=== PATIENT | female | born 1950 | race Caucasian/White ===

== ENCOUNTER → 2016-07-31 | Outpatient (CLI) | payer OTHER ==
[~2016-07-31] MED LIST: ADULT LOW DOSE81 MG PO; ALLOPURINOL 30300 M2 PO; ALPRAZOLAM 0.50.5 M1 PO; AMBIEN 5 MG TABL5 M1 PO; ATORVASTATIN CA40 MG PO; AVANDIA8 MG PO; AZITHROMYCIN 2250 MG PO; B12INJ; BISACODYL SUPP10 MG RECTAL; CAPOTEN PO; CEFDINIR300 MG PO; CITRATE OF MAG296 ML PO; COENZYME Q1060 MG PO; COLACE 100 MG100 MG PO; COLACE100 MG PO; COUMADIN 2 MG TA2 M1 PO; COUMADIN 5 MG TA5 M1; COUMADIN 5 MG TA5 M1 PO; DIGOXIN125 MCG PO; DIGOXIN250 MCG PO; FISH OIL 1,0001 EAC5 PO; FISH OIL 1,2001 EAC4 PO; FLEXERIL PO; GLUCOPHAGE500 MG PO; HUMALOG100 UNIT/2 SQ; HYDROCODON-ACE1 EAC7 PO; IBUPROFEN 600600 M1 PO; IBUPROFEN PO; IMDUR 60 MG TAB60 M1 PO; INDAPAMIDE2.5 MG PO; KEFLEX500 M1 PO; KOMBIGLYZE XR1 EAC1 PO; LANOXIN 0.250.25 M1 PO; LANTUS SC; LANTUSSOLASTAR; LIPITOR 20 MG T20 M1 PO; LIPITOR40 MG PO; LISINOPRIL2.5 MG PO; LISINOPRIL5 MG PO; LOPID600 MG PO; METFORMIN HCL500 MG PO; METHOCARBAMOL500 M1 PO; MILK OF MA2400 MG/10 PO; MULTAQ 400 MG400 MG PO; NAPROSYN500 MG PO; NEURONTIN 300300 M1 PO; NORCO 5-325 TA1 EACH PO; NOVOLIN R100 UNIT/1 SUBQ; NOVOLOG MI100 UNIT/2; NOVOLOG MI100 UNIT/2 SUBQ; NOVOLOG MI100 UNIT/M SUBQ; NOVOLOG100 UNIT/1; NOVOLOG100 UNIT/1 SUBQ; OMEPRAZOLE40 MG PO; PACERONE 200 M200 M1 PO; PERCOCET 5-3251 EACH PO; PERCOCET PO; POTASSIUM20 PO; PROPAFENONE 15150 MG PO; PROTONIX40 M1 PO; REQUIP 1 MG TABL1 M1 PO; ROBAXIN 750 MG750 M1 PO; ROXICET 5-3251 EACH PO; RYTHMOL SR225 MG PO; RYTHMOL SR325 MG PO; TOPROL XL25 MG; TOPROL XL50 MG PO; TRICOR145 MG PO; VALIUM5 MG PO; VYTORIN 10-401 EACH PO; VYTORIN 10-801 EACH PO; ZESTRIL20 MG PO; ZOLOFT 50 MG TA50 M1 PO; ZOLOFT PO; ZOLOFT100 MG PO
== END ==
LOC: ULTRA 04:09
DX: M79.605 Pain in left leg (principal); M79.604 Pain in right leg

== ENCOUNTER → 2016-12-27 | Outpatient (CLI) | payer OTHER | LOC: MRI 07:33 | DX: R42 Dizziness and giddiness (principal); Z86.73 Personal history of transient ischemic attack (TIA), and cerebral infarction without residual deficits ==

== ENCOUNTER 2017-01-22 22:29 | Inpatient (IN) | payer OTHER ==
[~2017-01-22] VITALS: Ht 167.6 cm; Wt 86.2 kg
[2017-01-22 22:29] VITALS: BP 145/79
[2017-01-22 23:15] LABS: ABSOLUTE NEUTROPHILS 3.6 thou/uL (1.4-8.2); BASOPHILS 0.7 % (0.0-2.0); HEMATOCRIT 27.6 % (37.0-47.0); HEMOGLOBIN 9.7 gm/dL (12.0-15.0); LYMPHOCYTES 29.2 % (24.0-44.0); MCHC 35.1 g/dL (28.0-37.0); MCV 88.2 fL (80.0-100.0); MONOCYTES 9.7 % (1.0-8.0); PLATELET COUNT 279 thou/uL (150-400); POLYS 56.4 % (36.0-66.0); RBC 3.13 mil/uL (4.20-5.00); RDW 13.5 % (10.5-14.5); WBC 6.3 thou/uL (4.0-11.0)
[2017-01-22 23:17] LABS: CALCIUM 8.8 mg/dL (8.5-10.1); CREATININE 2.5 mg/dL (0.6-1.0); MANUAL DIFF NO; POTASSIUM 3.7 mmol/L (3.5-5.1)
[2017-01-22 23:24] LABS: ALBUMIN 3.2 g/dL (3.4-5.0); TOTAL BILIRUBIN 0.4 mg/dL (<0.1-1.0); TOTAL PROTEIN 6.1 g/dL (6.4-8.2)
[2017-01-22 23:35] LABS: URINE BILIRUBIN NEGATIVE (Negative); URINE BLOOD TRACE (Negative); URINE COLOR YELLOW; URINE GLUCOSE-RANDOM* NEGATIVE (Negative); URINE KETONES NEGATIVE (Negative); URINE LEUKOCYTES-REFLEX NEGATIVE (Negative); URINE PROTEIN (DIPSTICK) TRACE (Negative); URINE SPECIFIC GRAVITY <= 1.005 (1.003-1.035); URINE UROBILINOGEN 0.2 E.U./dl (0.2-1.0)
[2017-01-23 00:01] LABS: INR 1.9; PROTIME 19.4 Seconds (9.3-11.4)
[2017-01-23] MEDS ORDERED: AMBIEN 5 MG TABL5 M1 PO (00:38)
[2017-01-23 00:42] VITALS: BP 161/67
[2017-01-23 01:00] VITALS: BP 161/51
[2017-01-23 04:31] VITALS: BP 168/49
[2017-01-23 15:30] VITALS: BP 169/66
[2017-01-23 15:57] LABS: CALCIUM 8.6 mg/dL (8.5-10.1); CREATININE 2.2 mg/dL (0.6-1.0); POTASSIUM 3.5 mmol/L (3.5-5.1)
[2017-01-23 20:00] VITALS: BP 175/71
[2017-01-24 04:06] LABS: CALCIUM 8.2 mg/dL (8.5-10.1); CREATININE 2.1 mg/dL (0.6-1.0); POTASSIUM 3.6 mmol/L (3.5-5.1)
[2017-01-24 04:30] VITALS: BP 179/68
[2017-01-24 08:39] VITALS: BP 178/75
[2017-01-24 13:41] VITALS: BP 178/75
[2017-01-24 15:42] VITALS: BP 178/75
== END 2017-01-24 19:31 | disposition home health service (06) | DRG 391 ==
LOC: ER 22:29 → EROBS 01-23 00:23 → 4N 01-23 00:23
PROVIDERS: Emergency Medicine; Family Medicine
DX: K52.9 Noninfective gastroenteritis and colitis, unspecified (principal); N17.0 Acute kidney failure with tubular necrosis; I13.0 Hypertensive heart and chronic kidney disease with heart failure and stage 1 through stage 4 chronic kidney disease, or unspecified chronic kidney disease; E78.5 Hyperlipidemia, unspecified; I48.91 Unspecified atrial fibrillation; E78.00 Pure hypercholesterolemia, unspecified; G25.81 Restless legs syndrome; F32.9 Major depressive disorder, single episode, unspecified; M79.7 Fibromyalgia; I50.9 Heart failure, unspecified; N18.9 Chronic kidney disease, unspecified; E11.22 Type 2 diabetes mellitus with diabetic chronic kidney disease; Z28.21 Immunization not carried out because of patient refusal; Z79.4 Long term (current) use of insulin; Z90.710 Acquired absence of both cervix and uterus; Z79.01 Long term (current) use of anticoagulants; Z87.01 Personal history of pneumonia (recurrent); Z90.49 Acquired absence of other specified parts of digestive tract; I25.2 Old myocardial infarction; Z87.440 Personal history of urinary (tract) infections
CPT/HCPCS: 10091

== ENCOUNTER 2017-02-04 19:58 | Inpatient (IN) | payer OTHER ==
[~2017-02-04] VITALS: Ht 170.2 cm; Wt 81.2 kg
--- NOTE | ~2017-02-04 | S ---
[facility] [place] [address] SURGICAL PATH RPT PROCEDURE Name: TAMI HANNAH Room #: 439-P DIS IN M.R.#: [id number] Admission: 02/04/17 Date of : 52 Discharge: 02/07/17 Report #: [id number] Path Case #: [id number] PATHOLOGY REPORT COLLECTION DATE: 02/06/2017 RECEIVED DATE: 02/07/2017 SUBMITTING PHYS: Dr. Pattie Calloway OTHER PHYS: Dr. Tacos Rodriguez SPECIMEN(S) RECEIVED: A.Gastric * * * * * * * * * * * * FINAL DIAGNOSIS: "Gastric", biopsy: - Gastric mucosa with mild reactive changes and mild chronic inflammation. - Negative H. pylori immunohistochemical stain (block A1); control reacted appropriately. (CLW:db; 02/10/2017) PATHOLOGIST: Alexandra Gooden M.D. REPORT ELECTRONICALLY SIGNED BY: Alexandra Gooden M.D. DATE/TIME: 02/10/2017 16:00 * * * * * * * * * * * * GROSS PATHOLOGY: Received in formalin labeled "Tami Hannah, BX gastric body r/o H. pylori," are 2 segments of tinoco soft tissue measuring 0.7 x 0.2 x 0.3 cm in aggregate dimensions and ranging from 0.4 to 0.4 cm in maximum dimension. The specimen is submitted entirely in cassette A1. (TSD; 02/07/2017) CLINICAL HISTORY: Pre-OP DX: Nausea/vomiting Post-OP DX: Diffuse mild gastritis INITIAL CPT CODE(S): A; 21819, 51201 Professional services performed by [facility] at [facility] [address], [place] [address] Technical services performed by [facility] at [address] [place] [address] [address] [facility] [address] [place] [address] SURGICAL PATH RPT PROCEDURE Name: TAMI HANNAH HOFF Room #: 439-P DIS IN M.R.#: [id number] Admission: 02/04/17 Date of : 52 Discharge: 02/07/17 Report #: [id number] Path Case #: [id number] [facility] [address] [address] PHONE: [phone] DIRECTOR: Hunter Howard M.D. * * * END OF REPORT * * *
--- NOTE | ~2017-02-04 | P ---
[facility] [place] [address] PROCEDURE REPORT Name: TAMI JOY Room #: 439-P ADM IN M.R.#: [id number] Admission: 02/04/17 Attend Phys: Tacos Rodriguez MD Discharge: Date of : 52 Report #: [id number] THIS REPORT FOR: //name// CC: Tacos Rodriguez MD DATE OF SERVICE: 02/06/2017 PROCEDURE: EGD with biopsies. She is a patient of Dr. Tacos Rodriguez. INDICATION FOR PROCEDURE: Evaluate nausea and vomiting of sudden onset. Informed consent for this procedure was obtained prior to the administration of any medication. The risks of the procedure, which include bleeding, perforation, infection, complications of sedation and the possibility I could miss something have been explained to the patient and she has indicated her consent by signing. Propofol was slowly titrated before and during this procedure for patient comfort by the anesthesia service. The [employer] upper videoscope was introduced through the upper esophageal sphincter and advanced under direct visualization to the descending duodenum. Findings are noted on withdrawal of the scope. The duodenal mucosa appears normal throughout its entirety. Pylorus, normal mucosa. Antrum, mild erythema is noted. Biopsies obtained x 1 for histopathology. Body, diffuse mild erythema of the body of the stomach is noted. Biopsies obtained x 1 for histopathology. Both of these biopsies were placed in the same chart. Cardia and fundus, normal mucosa. Retroflex view did not reveal any hiatal hernia. The scope was withdrawn to the esophagus. The Z-line is appropriately located at the top of the gastric folds and appears normal. The esophageal mucosa appears normal throughout its entirety. The scope was withdrawn. The patient went to the recovery area in stable condition. She tolerated the procedure well. IMPRESSION: Diffuse mild gastritis. Other than that, normal esophagogastroduodenoscopy to descending duodenum. RECOMMENDATIONS: To await the biopsy results. We will start her on a diet as tolerated as she is quite hungry. If she tolerates that, she can probably be discharged tomorrow to home. Thank you very much once again for allowing me to participate in her care, [address] [address] PROCEDURE REPORT Name: TAMI JOY Room #: 439-P [facility] IN .R.#: [id number] Admission: 02/04/17 Attend Phys: Tacos Rodriguez MD Discharge: Date of : 52 Report #: [id number] Michael. She might benefit from some Pepcid or proton pump inhibitors for a little while to get the gastritis cleared up. <ELECTRONICALLY SIGNED> By: Pattie Calloway DO 02/07/17 0038 1643 2308 Pattie Calloway DO /nt
--- NOTE | ~2017-02-04 | HC ---
[facility] [place] [address] CONSULTATION Name: TAMI JOY Room #: 439-P ADM IN M.R.#: [id number] Admission: 02/04/17 Attend Phys: Tacos Rodriguez MD Discharge: Date of : 52 Report #: [id number] THIS REPORT FOR: //name// CC: Tacos Rodriguez DATE OF SERVICE: 02/06/2017 ATTENDING PHYSICIAN: Tacos Rodriguez MD REASON FOR CONSULTATION: Acute kidney injury. HISTORY OF PRESENT ILLNESS: A 66-year-old patient with diabetes, frequent episodes of nausea, vomiting and diarrhea, presents with same after similar presentation a couple of weeks ago. She has had several episodes of hospitalization with volume depletion and her creatinine rising. Most recent creatinine was 0.9 last February after rehydration at that time. She knows of having no kidney problems in the past, has a good urinary stream, has had a little hypertension and has had diabetes for sometime, but no retinopathy or peripheral neuropathy. PAST MEDICAL HISTORY: She has had the diabetes as mentioned, atrial fibrillation, on anticoagulation; some hypertension and these episodes of nausea and vomiting as mentioned. PAST SURGICAL HISTORY: Includes cholecystectomy. Apparently, she has had small-bowel obstruction as well. 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 FAMILY HISTORY: Positive for heart disease. HOME MEDICATIONS: She was taking some ibuprofen at home, in addition Coumadin, amiodarone 200 mg daily, aspirin 81 mg daily, atorvastatin 40 mg daily, gabapentin 300 mg b.i.d., indapamide 2.5 mg daily, 2.5 mg daily, insulin, metformin 1000 mg b.i.d. Requip 1 mg at bedtime, warfarin, and Ambien. PHYSICAL EXAMINATION: GENERAL: This is a reasonably well-appearing woman, sitting up in bed, in no distress. SKIN: Unremarkable. SKELETAL: Nonobese. HEENT: Extraocular movements are full. Vision intact. Hearing intact. No scleral icterus. Mucous membranes slightly dry. NECK: Supple, neck veins flat. No carotid bruits or JVD. CHEST: Clear to auscultation. HEART: Regular. [facility] [address] [place] [address] CONSULTATION Name: TAMI JOY Room #: 439-P ADM IN M.R.#: [id number] Admission: 02/04/17 Attend Phys: Tacos Rodriguez MD Discharge: Date of : 52 Report #: [id number] ABDOMEN: Soft and nontender without bruits, masses or organomegaly. EXTREMITIES: Show no peripheral edema. Pulses intact. NEUROLOGIC: Intact. LABORATORY DATA: Hemoglobin 10.3. Sodium 133, potassium 2.8, chloride , bicarbonate 22, and BUN 35. ASSESSMENT: 1. Acute kidney injury. Creatinine up. She was volume depleted. She may have some underlying diabetic kidney disease. I will check urinary proteins. She is on some lisinopril, this may be quite appropriate. Blood pressure is okay. She is getting IV fluids that is appropriate, for completeness, paraprotein studies and renal sonogram will be done. 2. Nausea, vomiting, and diarrhea, being evaluated. 3. Diabetes mellitus, longstanding. 4. History of hypertension. 5. History of atrial fibrillation. By: 1015 1445 Arben Verde MD /nt
[2017-02-04 19:59] VITALS: BP 171/66
[2017-02-04 20:43] LABS: ABSOLUTE NEUTROPHILS 4.1 thou/uL (1.4-8.2); BASOPHILS 0.8 % (0.0-2.0); EOSINOPHILS 1.1 % (0.0-3.0); HEMATOCRIT 29.7 % (37.0-47.0); HEMOGLOBIN 10.3 gm/dL (12.0-15.0); LYMPHOCYTES 26.7 % (24.0-44.0); MCH 30.7 pg (26.0-34.0); MCHC 34.8 g/dL (28.0-37.0); MCV 88.2 fL (80.0-100.0); MONOCYTES 8.7 % (1.0-8.0); PLATELET COUNT 338 thou/uL (150-400); POLYS 62.7 % (36.0-66.0); RBC 3.37 mil/uL (4.20-5.00); RDW 13.4 % (10.5-14.5); WBC 6.6 thou/uL (4.0-11.0)
[2017-02-04 20:51] LABS: MANUAL DIFF NO
[2017-02-04 20:55] LABS: CALCIUM 9.4 mg/dL (8.5-10.1); CREATININE 2.8 mg/dL (0.6-1.0)
[2017-02-04 20:57] LABS: POTASSIUM 2.9 mmol/L (3.5-5.1)
[2017-02-04 21:00] LABS: ALBUMIN 3.8 g/dL (3.4-5.0); TOTAL BILIRUBIN 0.6 mg/dL (<0.1-1.0)
[2017-02-04 21:04] LABS: INR 1.4; PROTIME 14.4 Seconds (9.3-11.4)
[2017-02-04 22:04] LABS: URINE BILIRUBIN NEGATIVE (Negative); URINE BLOOD NEGATIVE (Negative); URINE COLOR YELLOW; URINE GLUCOSE-RANDOM* NEGATIVE (Negative); URINE KETONES NEGATIVE (Negative); URINE NITRITE NEGATIVE (Negative); URINE PROTEIN (DIPSTICK) TRACE (Negative); URINE SPECIFIC GRAVITY <= 1.005 (1.003-1.035); URINE UROBILINOGEN 0.2 E.U./dl (0.2-1.0)
[2017-02-04 22:06] VITALS: BP 144/100
[2017-02-04 22:34] VITALS: BP 183/68
[2017-02-05 00:10] VITALS: BP 176/59
[2017-02-05 04:20] VITALS: BP 145/60
[2017-02-05 08:00] VITALS: BP 173/75
[2017-02-05 16:00] VITALS: BP 176/75
[2017-02-05 20:00] VITALS: BP 178/71
[2017-02-05 20:06] VITALS: BP 178/71
[2017-02-05 23:22] LABS: MAGNESIUM 1.3 mg/dL (1.8-2.4)
[2017-02-06 05:18] VITALS: BP 140/66
[2017-02-06 05:59] LABS: CREATININE 2.2 mg/dL (0.6-1.0)
[2017-02-06 06:01] LABS: INR 1.4; POTASSIUM 2.8 mmol/L (3.5-5.1); PROTIME 13.8 Seconds (9.3-11.4)
[2017-02-06 08:00] VITALS: BP 147/70
[2017-02-06 12:29] LABS: PROT/CREAT RATIO 1.3; URINE CREATININE-RANDOM* 17.8 mg/dL; URINE PROTEIN-RANDOM* 23.1 mg/dL (<11.9)
[2017-02-06 17:00] VITALS: BP 192/77
[2017-02-06 20:53] VITALS: BP 184/85
[2017-02-06 23:31] LABS: POTASSIUM 3.2 mmol/L (3.5-5.1)
[2017-02-07 04:58] VITALS: BP 152/71
[2017-02-07 06:56] LABS: MAGNESIUM 2.8 mg/dL (1.8-2.4); POTASSIUM 3.8 mmol/L (3.5-5.1)
[2017-02-07 08:00] VITALS: BP 169/65
[2017-02-07 11:29] LABS: ALBUMIN 3.3 g/dL (3.4-5.0); CALCIUM 8.8 mg/dL (8.5-10.1); CREATININE 2.2 mg/dL (0.6-1.0); PHOSPHORUS 3.7 mg/dL (2.5-4.9)
[2017-02-07 13:34] VITALS: BP 169/65
== END 2017-02-07 19:14 | disposition home health service (06) | DRG 73 ==
LOC: ER 19:58 → 4S 21:26 → EROBS 21:26 → 4S 22:07 → ENTRNSPT 02-07 19:02 → 4S 02-07 19:14
PROVIDERS: Family Medicine; Internal Medicine Gastroenterology; Internal Medicine Nephrology; Nurse Practitioner; Physician Assistant
DX: E11.43 Type 2 diabetes mellitus with diabetic autonomic (poly)neuropathy (principal); N17.0 Acute kidney failure with tubular necrosis; E87.1 Hypo-osmolality and hyponatremia; K31.84 Gastroparesis; N18.9 Chronic kidney disease, unspecified; I48.91 Unspecified atrial fibrillation; I12.9 Hypertensive chronic kidney disease with stage 1 through stage 4 chronic kidney disease, or unspecified chronic kidney disease; E11.22 Type 2 diabetes mellitus with diabetic chronic kidney disease; Z53.29 Procedure and treatment not carried out because of patient's decision for other reasons; E78.00 Pure hypercholesterolemia, unspecified; G25.81 Restless legs syndrome; F32.9 Major depressive disorder, single episode, unspecified; M79.7 Fibromyalgia; E87.6 Hypokalemia; E83.42 Hypomagnesemia; K29.70 Gastritis, unspecified, without bleeding; F03.90 Unspecified dementia, unspecified severity, without behavioral disturbance, psychotic disturbance, mood disturbance, and anxiety; Z79.01 Long term (current) use of anticoagulants; I25.2 Old myocardial infarction; Z90.49 Acquired absence of other specified parts of digestive tract; Z90.710 Acquired absence of both cervix and uterus; Z79.899 Other long term (current) drug therapy; Z79.4 Long term (current) use of insulin; Z79.84 Long term (current) use of oral hypoglycemic drugs
CPT/HCPCS: 10100; 62110; 70005

== ENCOUNTER 2017-02-09 17:23 | Inpatient (IN) | payer OTHER ==
[~2017-02-09] VITALS: Ht 170.2 cm; Wt 75.8 kg
--- NOTE | ~2017-02-09 | EKG ---
[place] [address] [facility] [place] [address] ELECTROCARDIOGRAM REPORT Name: TAMI JOY [id number] Admission: 02/09/17 Attend Phys: Discharge: Date of : 52 Report #: [id number] THIS REPORT FOR: //name// 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
[2017-02-09 17:24] VITALS: BP 134/56
[2017-02-09 17:50] LABS: BASOPHILS 1.1 % (0.0-2.0); EOSINOPHILS 2.4 % (0.0-3.0); HEMATOCRIT 31.5 % (37.0-47.0); HEMOGLOBIN 10.9 gm/dL (12.0-15.0); LYMPHOCYTES 29.2 % (24.0-44.0); MCH 30.9 pg (26.0-34.0); MCHC 34.4 g/dL (28.0-37.0); MCV 89.7 fL (80.0-100.0); MONOCYTES 9.2 % (1.0-8.0); PLATELET COUNT 348 thou/uL (150-400); POLYS 58.1 % (36.0-66.0); RBC 3.51 mil/uL (4.20-5.00); RDW 13.5 % (10.5-14.5); WBC 6.9 thou/uL (4.0-11.0)
[2017-02-09 17:56] LABS: MANUAL DIFF NO
[2017-02-09 18:03] LABS: ANION GAP 12 mmol/L (7-16); BUN 28 mg/dL (7-18); CALCIUM 9.5 mg/dL (8.5-10.1); CHLORIDE 101 mmol/L (98-107); CO2 23 mmol/L (21-32); CREATININE 2.9 mg/dL (0.6-1.0); GLUCOSE 61 mg/dL (74-106); SODIUM 136 mmol/L (136-145)
[2017-02-09 18:08] LABS: URINE BILIRUBIN NEGATIVE (Negative); URINE BLOOD NEGATIVE (Negative); URINE COLOR YELLOW; URINE GLUCOSE-RANDOM* NEGATIVE (Negative); URINE KETONES NEGATIVE (Negative); URINE NITRITE NEGATIVE (Negative); URINE PROTEIN (DIPSTICK) 2+ (Negative); URINE UROBILINOGEN 0.2 E.U./dl (0.2-1.0)
[2017-02-09 18:11] LABS: ALBUMIN 3.5 g/dL (3.4-5.0); ALKALINE PHOSPHATASE 68 U/L (46-116); DIRECT BILIRUBIN < 0.1 mg/dL (<0.1-0.3); SGOT 14 U/L (15-37); SGPT 25 U/L (30-65); TOTAL BILIRUBIN 0.4 mg/dL (<0.1-1.0); TOTAL PROTEIN 6.8 g/dL (6.4-8.2); TROPONIN-I < 0.04 ng/mL (<0.04-0.07)
[2017-02-09 18:23] LABS: SQUAMOUS 4-10 Moderate /LPF (0-3)
[2017-02-09 18:24] LABS: AMORPHOUS URATES Few /LPF (None Seen); HYALINE CASTS 4-10 Moderate /LPF (None Seen); URINE RBC None Seen /HPF (0-2); URINE WBC 6-15 Few /HPF (0-5)
[2017-02-09 21:22] VITALS: BP 112/55
[2017-02-09 21:58] VITALS: BP 122/60
[2017-02-09 22:24] VITALS: BP 158/61
[2017-02-09 23:35] VITALS: BP 180/66
[2017-02-09 23:46] VITALS: BP 180/66
[2017-02-09] MEDS ORDERED: METOPROLOL SUCC25 M1 PO (23:48)
[2017-02-09] MEDS ORDERED: METFORMIN HCL500 MG PO (23:49)
[2017-02-10 05:08] VITALS: BP 123/56
[2017-02-10 08:00] VITALS: BP 144/69
[2017-02-10 16:00] VITALS: BP 174/65
[2017-02-10 20:03] VITALS: BP 173/61
[2017-02-11 06:22] VITALS: BP 110/59
[2017-02-11 08:00] VITALS: BP 169/67
[2017-02-11 16:25] VITALS: BP 145/64
[2017-02-11 19:31] VITALS: BP 171/72
[2017-02-12 03:27] VITALS: BP 128/50
[2017-02-12 08:00] VITALS: BP 112/65
[2017-02-12 15:15] VITALS: BP 145/63
== END 2017-02-12 15:22 | DRG 682 ==
LOC: ER 17:23 → EROBS 20:00 → 4S 20:00
PROVIDERS: Emergency Medicine
DX: N17.9 Acute kidney failure, unspecified (principal); E43 Unspecified severe protein-calorie malnutrition; I12.9 Hypertensive chronic kidney disease with stage 1 through stage 4 chronic kidney disease, or unspecified chronic kidney disease; K31.84 Gastroparesis; E87.6 Hypokalemia; I48.91 Unspecified atrial fibrillation; M79.7 Fibromyalgia; E78.00 Pure hypercholesterolemia, unspecified; N18.9 Chronic kidney disease, unspecified; E11.22 Type 2 diabetes mellitus with diabetic chronic kidney disease; E11.43 Type 2 diabetes mellitus with diabetic autonomic (poly)neuropathy; G25.81 Restless legs syndrome; F32.9 Major depressive disorder, single episode, unspecified; I25.2 Old myocardial infarction; Z90.49 Acquired absence of other specified parts of digestive tract; Z68.26 Body mass index [BMI] 26.0-26.9, adult; Z90.710 Acquired absence of both cervix and uterus; Z79.82 Long term (current) use of aspirin; Z79.4 Long term (current) use of insulin; Z79.01 Long term (current) use of anticoagulants; Z79.899 Other long term (current) drug therapy; Z23 Encounter for immunization
CPT/HCPCS: 10102

== ENCOUNTER 2017-03-12 18:50 | Inpatient (IN) | payer OTHER ==
[~2017-03-12] VITALS: Ht 170.2 cm; Wt 72.6 kg
--- NOTE | ~2017-03-12 | EKG ---
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 : 1950 Requested By: Lionel Hernandez Order Number: [id number] MD: Juan F Mullins Measurements Intervals [place] Rate: 70 P: 60 VT: 229 QRS: 15 QRSD: 116 T: 18 QT: 412 QTc: 445 Interpretive Statements Sinus rhythm Prolonged VT interval Nonspecific intraventricular conduction delay Compared to ECG 02/09/2017 17:39:31 First degree AV block now present Left ventricular hypertrophy no longer present Early repolarization no longer present Electronically Signed On 03-13-2017 12:45:14 FAMILY CONSULTANT by Juan F Mullins [email or web address] <ELECTRONICALLY SIGNED> By: Juan F Mullins MD 03/13/17 1245 58 58 Juan F Mullins MD /EPI
[~2017-03-12 18:50] MED LIST changes: +METOPROLOL SUCC25 M1 PO
[2017-03-12 18:54] VITALS: BP 145/52
[2017-03-12 19:16] LABS: ABSOLUTE NEUTROPHILS 3.2 thou/uL (1.4-8.2); BASOPHILS 0.7 % (0.0-2.0); EOSINOPHILS 2.2 % (0.0-3.0); HEMATOCRIT 28.6 % (37.0-47.0); HEMOGLOBIN 9.6 gm/dL (12.0-15.0); LYMPHOCYTES 32.8 % (24.0-44.0); MCHC 33.8 g/dL (28.0-37.0); MCV 91.7 fL (80.0-100.0); MONOCYTES 9.1 % (1.0-8.0); PLATELET COUNT 306 thou/uL (150-400); POLYS 55.2 % (36.0-66.0); RBC 3.11 mil/uL (4.20-5.00); WBC 5.8 thou/uL (4.0-11.0)
[2017-03-12 19:17] LABS: MANUAL DIFF NO
[2017-03-12 19:19] LABS: ANION GAP 13 mmol/L (7-16); BUN 41 mg/dL (7-18); CALCIUM 9.3 mg/dL (8.5-10.1); CHLORIDE 99 mmol/L (98-107); CO2 24 mmol/L (21-32); CREATININE 2.5 mg/dL (0.6-1.0); GLUCOSE 141 mg/dL (74-106); POTASSIUM 3.7 mmol/L (3.5-5.1); SODIUM 136 mmol/L (136-145)
[2017-03-12 19:28] LABS: TROPONIN-I < 0.04 ng/mL (<0.06)
[2017-03-12 19:29] LABS: INR 1.1; PROTIME 11.3 Seconds (9.3-11.4)
[2017-03-12 20:12] LABS: URINE BILIRUBIN NEGATIVE (Negative); URINE BLOOD NEGATIVE (Negative); URINE COLOR YELLOW; URINE GLUCOSE-RANDOM* NEGATIVE (Negative); URINE KETONES NEGATIVE (Negative); URINE LEUKOCYTES-REFLEX TRACE (Negative); URINE PROTEIN (DIPSTICK) 2+ (Negative); URINE SPECIFIC GRAVITY 1.015 (1.003-1.035); URINE UROBILINOGEN 0.2 E.U./dl (0.2-1.0)
[2017-03-12 20:26] LABS: CASTS None Seen /LPF (None Seen); CRYSTALS None Seen /LPF (None Seen); SQUAMOUS 0-3 Few /LPF (0-3); URINE RBC None Seen /HPF (0-2); URINE WBC-REFLEX 6-15 Few /HPF (0-5)
[2017-03-12 21:14] VITALS: BP 171/64
[2017-03-12 21:34] VITALS: BP 189/87
[2017-03-13 05:24] VITALS: BP 129/48
[2017-03-13 07:32] VITALS: BP 157/62
[2017-03-13 15:25] VITALS: BP 137/53
[2017-03-13 19:14] VITALS: BP 156/64
[2017-03-14 03:40] LABS: CALCIUM 8.4 mg/dL (8.5-10.1); CREATININE 1.8 mg/dL (0.6-1.0); POTASSIUM 3.8 mmol/L (3.5-5.1)
[2017-03-14 03:50] VITALS: BP 132/51
[2017-03-14 05:44] LABS: HEMOGLOBIN 8.8 gm/dL (12.0-15.0); MCH 30.8 pg (26.0-34.0); MCHC 33.7 g/dL (28.0-37.0); MCV 91.4 fL (80.0-100.0); RBC 2.85 mil/uL (4.20-5.00); RDW 12.6 % (10.5-14.5); WBC 5.8 thou/uL (4.0-11.0)
[2017-03-14 07:22] VITALS: BP 132/54
[2017-03-14 10:59] VITALS: BP 134/54
[2017-03-14 11:38] VITALS: BP 134/54
== END 2017-03-14 11:36 | disposition home or self-care (01) | DRG 312 ==
LOC: ER 18:50 → EROBS 20:39 → 4S 21:15
PROVIDERS: Emergency Medicine; Family Medicine
DX: I95.1 Orthostatic hypotension (principal); N17.9 Acute kidney failure, unspecified; I48.91 Unspecified atrial fibrillation; G25.81 Restless legs syndrome; E78.00 Pure hypercholesterolemia, unspecified; F32.9 Major depressive disorder, single episode, unspecified; M79.7 Fibromyalgia; E11.65 Type 2 diabetes mellitus with hyperglycemia; N18.9 Chronic kidney disease, unspecified; I12.9 Hypertensive chronic kidney disease with stage 1 through stage 4 chronic kidney disease, or unspecified chronic kidney disease; E11.22 Type 2 diabetes mellitus with diabetic chronic kidney disease; Z79.82 Long term (current) use of aspirin; Z79.899 Other long term (current) drug therapy; Z86.73 Personal history of transient ischemic attack (TIA), and cerebral infarction without residual deficits; Z79.01 Long term (current) use of anticoagulants; Z90.710 Acquired absence of both cervix and uterus; Z90.49 Acquired absence of other specified parts of digestive tract; Z79.4 Long term (current) use of insulin; I25.2 Old myocardial infarction; Z28.21 Immunization not carried out because of patient refusal
CPT/HCPCS: 10100

== ENCOUNTER → 2017-03-20 | Outpatient (CLI) | payer OTHER | LOC: MRI 09:55 | DX: G31.9 Degenerative disease of nervous system, unspecified (principal) ==

== ENCOUNTER → 2017-06-06 | Outpatient (CLI) | payer OTHER ==
[~2017-06-06] VITALS: Ht 167.6 cm; Wt 78.0 kg
[~2017-06-06] MED LIST changes: +TRAMADOL 50 MG50 MG PO; +XARELTO10 MG PO
--- NOTE | ~2017-06-06 | S ---
[facility] [place] [address] SURGICAL PATH RPT PROCEDURE Name: TAMI HANNAH Room #: REG [facility] M..#: [id number] Admission: 06/06/17 Date of : 52 Discharge: Report #: [id number] Path Case #: [id number] PATHOLOGY REPORT COLLECTION DATE: 06/06/2017 RECEIVED DATE: 06/06/2017 SUBMITTING PHYS: Dr. Roland Lassiter OTHER PHYS: Dr. Tacos Rodriguez SPECIMEN(S) RECEIVED: A.Small bowel * * * * * * * * * * * * FINAL DIAGNOSIS: Small intestinal mucosa "small bowel biopsy": - No obvious diagnostic changes. - There is no evidence of acute cryptitis, granulomas, adenomatous change, sprue like changes or malignancy. (SHA:pit; 06/09/2017) PATHOLOGIST: Keny Richardson M.D. REPORT ELECTRONICALLY SIGNED BY: Keny Richardson M.D. DATE/TIME: 06/09/2017 08:59 * * * * * * * * * * * * GROSS PATHOLOGY: Received in formalin labeled "Tami Hannah, BX small bowel, rule out celiac disease," are 2 segments of tinoco soft tissue measuring 0.8 x 0.2 x 0.2 cm in aggregate dimensions and ranging from 0.2 to 0.6 cm in maximum dimension. The specimen is submitted entirely in cassette A1. (TSD; 06/06/2017) CLINICAL HISTORY: Pre-OP DX: Anemia with anticoagulation Post OP DX: Anemia, cecal AVM INITIAL CPT CODE(S): A; 24221 Professional services performed by [facility] at [facility] [address], [place] [address] Technical services performed by [facility] at [address] [place] [address] [facility] [address] [place] [address] SURGICAL PATH RPT PROCEDURE Name: TAMI HANNAH Room #: REG EDITA Jackson#: [id number] Admission: 06/06/17 Date of : 52 Discharge: Report #: [id number] Path Case #: [id number] [facility] [address] [address] PHONE: [phone] DIRECTOR: Hunter Howard M.D. * * * END OF REPORT * * *
--- NOTE | ~2017-06-06 | P ---
[facility] [place] [address] PROCEDURE REPORT Name: TAMI JOY Room #: REG [facility].#: [id number] Admission: 06/06/17 Attend Phys: Roland Lassiter MD Discharge: Date of : 51 Report #: [id number] THIS REPORT FOR: //name// CC: Roland Rodriguez MD BRIEF HISTORY: The patient is a 66-year-old woman with anemia. Last colonoscopy was more than 10 years ago. PREOPERATIVE DIAGNOSIS: Anemia. POSTOPERATIVE DIAGNOSIS: Arteriovenous malformation of the cecum, nonbleeding. MEDICATIONS: Deep sedation with propofol per anesthesia. SPECIMENS: None. ESTIMATED BLOOD LOSS: None. PROCEDURE: Colonoscopy to cecum with BICAP cautery of cecal AVM. FINDINGS: Prior to propofol sedation, procedure of colonoscopy discussed with the patient as well as potential risks and its complications. She indicates she understands and desires to proceed. DESCRIPTION OF PROCEDURE: With the patient in left lateral decubitus position, digital examination was completed, which revealed no abnormalities. Subsequently, [employer] video colonoscope was introduced in the rectum and advanced under direct vision into the cecum without difficulty. Cecum was identified by the ileocecal valve and the appendiceal orifice. Due to looping of the scope, we could not cross the ileocecal valve. At that point, scope was withdrawn and careful circumferential views were obtained. The prep was good. The mucosa was within normal limits, normal vascular pattern and normal light reflex. No blood was seen. In the cecum, on a fold just outside the appendiceal orifice, a small nonbleeding AVM was seen and was destroyed with BICAP cautery. There was good hemostasis and no bleeding. As we withdrew the scope, no additional AVMs were seen. No polyps were seen. No bleeding lesions were seen. Inflammatory changes were not seen. The remainder of the colon was within normal limits. Scope was withdrawn in the rectum. Upon retroflexion, no abnormalities were seen. Scope was withdrawn. The patient tolerated the procedure well. CONDITION OF THE PATIENT UPON DISCHARGE: Following the procedure, the patient drowsy, arousable, conversant and will be discharged home when fully ambulatory. INSTRUCTIONS TO THE PATIENT AND FAMILY AT THE TIME OF DISCHARGE: Small AVM is seen in the cecum. No other AVMs seen. This is a potential source of anemia. [address] [address] PROCEDURE REPORT Name: TAMI JOY Room #: REG EDITA Jackson#: [id number] Admission: 06/06/17 Attend Phys: Roland Lassiter MD Discharge: Date of : 52 Report #: [id number] She is to follow up with Dr. Rodriguez for monitoring of hemoglobin. If that remains concerned about anemia or further blood loss, M2 capsule will be likely the next study. As for colorectal screening, no neoplastic lesions were seen. She does have followup colon exam in 10 years. Suggest high-fiber diet. Suggest followup colon exam in 10 years. Last colonoscopy was more than 10 years ago. Withdrawal time from the cecum was 12 minutes and 32 seconds. <ELECTRONICALLY SIGNED> By: Roland Lassiter MD 06/10/17 1617 1216 1256 Roland Lassiter MD /nt
--- NOTE | ~2017-06-06 | P ---
[facility] [place] [address] PROCEDURE REPORT Name: TAMI JOY Room #: REG [facility].#: [id number] Admission: 06/06/17 Attend Phys: Roland Lassiter MD Discharge: Date of : 51 Report #: [id number] THIS REPORT FOR: //name// CC: Roland Rodriguez MD DATE OF SERVICE: 06/06/2017 OUTPATIENT UPPER ENDOSCOPY BRIEF HISTORY: The patient is a 66-year-old woman with recent findings of anemia. She does take Xarelto for AFib and history of TIAs. PREOPERATIVE DIAGNOSIS: Anemia on anticoagulation. POSTOPERATIVE DIAGNOSIS: Anemia. MEDICATIONS: Deep sedation with propofol per anesthesia. SPECIMEN: Duodenal biopsies to rule out celiac disease. ESTIMATED BLOOD LOSS: 3 mL. PROCEDURE: EGD with biopsy. FINDINGS: Prior to propofol sedation, procedure of upper endoscopy was discussed with the patient as well as potential risks and its complications. She indicates she understands and desires to proceed. DESCRIPTION OF PROCEDURE: With the hepatic in left lateral decubitus position, the [employer] video endoscope was inserted in the cervical esophagus under direct vision without difficulty. Examination of this organ through its entire length revealed normal esophageal mucosa down to the squamocolumnar junction. The squamocolumnar junction was inspected and noted to be unremarkable. No evidence of ulcers or erosions, hiatus hernia, Gonzales's esophagus or bleeding lesions. The scope was advanced into the stomach, was examined on end view as well as retroflexed views. She had normal mucosa on end view as well as retroflexed views. No ulcers, erosions or mass lesions were seen. A hiatus hernia was not seen. Upon retroflexion, no mass lesions were seen. The pylorus was normal. Duodenal bulb and postoperative sweep were normal. At that point, the scope was withdrawn and careful circumferential views confirmed the above findings. Biopsies were obtained to evaluate for celiac disease in view of her diabetes and anemia. Scope was withdrawn. The patient tolerated the procedure well. CONDITION OF THE PATIENT UPON DISCHARGE: Following procedure, the patient [address] [address] PROCEDURE REPORT Name: RUFINOTAMI Room #: REG [facility].#: [id number] Admission: 06/06/17 Attend Phys: Roland Lassiter MD Discharge: Date of : 51 Report #: [id number] drowsy and prepared for colonoscopy. INSTRUCTIONS TO THE PATIENT AND FAMILY AT THE TIME OF DISCHARGE: Cause of anemia not identified on an upper endoscopy. We will follow up on biopsies. Proceed with colonoscopy. <ELECTRONICALLY SIGNED> By: Roland Lassiter MD 06/10/17 1617 1124 2324 Roland Lassiter MD /nt
== END | disposition home or self-care (01) ==
LOC: GI 05-08 12:07
DX: D64.9 Anemia, unspecified (principal); Q27.33 Arteriovenous malformation of digestive system vessel; E11.9 Type 2 diabetes mellitus without complications; G62.9 Polyneuropathy, unspecified; I10 Essential (primary) hypertension; E78.5 Hyperlipidemia, unspecified; I21.3 ST elevation (STEMI) myocardial infarction of unspecified site; I48.91 Unspecified atrial fibrillation; Z98.890 Other specified postprocedural states; Z90.49 Acquired absence of other specified parts of digestive tract; G25.81 Restless legs syndrome; M79.7 Fibromyalgia; Z86.73 Personal history of transient ischemic attack (TIA), and cerebral infarction without residual deficits; Z90.710 Acquired absence of both cervix and uterus; F32.9 Major depressive disorder, single episode, unspecified; F41.9 Anxiety disorder, unspecified
CPT/HCPCS: 62110; 62900

== ENCOUNTER 2017-08-27 16:08 | Inpatient (IN) | payer OTHER ==
[~2017-08-27] VITALS: Ht 170.2 cm; Wt 77.9 kg
--- NOTE | ~2017-08-27 | HC ---
[facility] [place] [address] CONSULTATION Name: TAMI JOY Room #: 221-P ADM IN M.R.#: [id number] Admission: 08/27/17 Attend Phys: Tacos Rodriguez MD Discharge: Date of : 51 Report #: [id number] THIS REPORT FOR: //name// CC: Tacos Rodriguez REASON FOR PRESENTATION: Post fall. REASON FOR CONSULTATION: Chronic kidney disease. HISTORY OF PRESENT ILLNESS: This is a 67-year-old with past medical history of chronic kidney disease. She has longstanding diabetes mellitus, hypertension, AFib. She is maintained on metformin, lisinopril, indapamide. She had been evaluated by Dr. Verde back in 2016, for chronic kidney disease while here in the hospital. She was also supposed to see Dr. Verde in our clinic in September. She presented after a fall in [place]. She denies nonsteroidal anti-inflammatory medications. No chest pain or palpitation. No previous similar episodes. No headache or dizziness preceding the event. No other associated cardiac or neurological symptoms. She tells me that her blood pressure is not under well control. She also tells me that her blood sugar is in an acceptable control; however, looking at her most recent hemoglobin A1c back in June 2016, revealed that her hemoglobin A1c was 8.5, she does not recall her hemoglobin A1c from this year. She did have extensive workup in the past for her acute kidney injury and the only abnormality was a positive BREANNA. When she presented this time to the hospital, her sodium was down to 121. Her creatinine was up to 3.8. When she was discharged from the hospital back in 2017, her creatinine was 2.0. PAST MEDICAL HISTORY AND SURGICAL HISTORY: 1. AFib. 2. Diabetes mellitus. 3. Hypertension. 4. Left leg surgery. 5. Cholecystectomy. 6. Hyperlipidemia. 7. Diskectomy. 8. Fibromyalgia. 9. TIA. 10. Left carotid endarterectomy. 11. Anemia. ALLERGIES: No known drug allergies. MEDICATIONS: 1. Metformin. 2. Gabapentin. 3. Lisinopril. 4. Indapamide. [facility] [address] [place] [address] CONSULTATION Name: TAMI JOY Room #: 221-P [facility] IN M.R.#: [id number] Admission: 08/27/17 Attend Phys: Tacos Rodriguez MD Discharge: Date of : 52 Report #: [id number] 5. Xarelto. 6. Metoprolol. REVIEW OF SYSTEMS: GENERAL: Significant for weakness. CARDIOVASCULAR: No chest pain or palpitation. PULMONARY: No cough or hemoptysis. GASTROINTESTINAL: No nausea or vomiting. GENITOURINARY: No frequency, no urgency. NEUROLOGICAL: As per the history of present illness. SKIN: No rash or ulcerations. FAMILY HISTORY: Significant for hypertension. SOCIAL HISTORY: She used to be a . She denies drug or alcohol abuse. PHYSICAL EXAMINATION: GENERAL: She is alert, oriented, in no apparent distress. VITAL SIGNS: Blood pressure is significantly elevated at 195/73. She is afebrile. HEAD AND NECK: No jugular venous distention, no bruit, no thyromegaly. CHEST: Clear to auscultation bilaterally. CARDIOVASCULAR: Regular with no rub. ABDOMEN: Soft, nontender. LOWER EXTREMITIES: Trace edema. LABORATORY VALUES: Reviewed. Chemistry from today revealed that her sodium is up to 133. Creatinine is down to 3 from 3.8. Urine studies are pending. Head CT reviewed and this was consistent with a hematoma. Cervical spine CT negative for fractures. ASSESSMENT, IMPRESSION, AND PLAN: 1. Acute kidney injury. 2. Diabetes mellitus. 3. Hyponatremia. 4. Hyperlipidemia. 5. Atrial fibrillation. 6. Status post fall. 7. Chronic kidney disease. 8. Not sure what the source of her deterioration is. I will start the appropriate investigation. 9. Evaluate urine electrolytes, urine protein to creatinine ratio. 10. Obtain an ultrasound of both kidneys. 11. Evaluate the source for her fall. Hold metformin. 12. [place] [address] CONSULTATION Name: TAMI JOY Room #: 221-[facility] IN M.R.#: [id number] Admission: 08/27/17 Attend Phys: Tacos Rodriguez MD Discharge: Date of : 52 Report #: [id number] 13. Stop the IV fluid. 14. Needs a stable blood pressure regimen, for now she is only on metoprolol and I will increase the dose accordingly. Ultimately, she will need to be back on her angiotensin converting enzyme inhibitor after we evaluate her urine protein to creatinine ratio. 15. Fluid and salt restriction addressed to the patient. 16. Further plans will be implemented after we obtain initial workup. By: 0749 1541 Dylan Adames MD /nt
--- NOTE | ~2017-08-27 | EKG ---
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
[~2017-08-27 16:08] MED LIST changes: -TRAMADOL 50 MG50 MG PO
[2017-08-27 16:09] VITALS: BP 195/73
[2017-08-27 16:26] LABS: BASOPHILS 0.6 % (0.0-2.0); EOSINOPHILS 2.1 % (0.0-3.0); HEMATOCRIT 26.8 % (37.0-47.0); HEMOGLOBIN 9.5 gm/dL (12.0-15.0); LYMPHOCYTES 21.5 % (24.0-44.0); MCHC 35.4 g/dL (28.0-37.0); MCV 87.5 fL (80.0-100.0); MONOCYTES 7.1 % (1.0-8.0); PLATELET COUNT 295 thou/uL (150-400); POLYS 68.7 % (36.0-66.0); RBC 3.06 mil/uL (4.20-5.00); RDW 12.4 % (10.5-14.5); WBC 7.3 thou/uL (4.0-11.0)
[2017-08-27 16:36] LABS: ANION GAP 9 mmol/L (7-16); BUN 52 mg/dL (7-18); CALCIUM 9.4 mg/dL (8.5-10.1); CHLORIDE 89 mmol/L (98-107); CO2 23 mmol/L (21-32); CREATININE 3.8 mg/dL (0.6-1.0); GLUCOSE 152 mg/dL (74-106); SODIUM 121 mmol/L (136-145)
[2017-08-27 16:44] LABS: ALBUMIN 3.6 g/dL (3.4-5.0); SGOT 18 U/L (15-37); SGPT 20 U/L (30-65); TOTAL BILIRUBIN 0.6 mg/dL (<0.1-1.0); TOTAL PROTEIN 6.9 g/dL (6.4-8.2); TROPONIN-I < 0.04 ng/mL (<0.06)
[2017-08-27 17:57] VITALS: BP 195/73
[2017-08-27 18:00] VITALS: BP 195/73
[2017-08-27 19:09] VITALS: BP 187/96
[2017-08-27 20:00] VITALS: BP 192/93
[2017-08-28 00:22] VITALS: BP 116/53
[2017-08-28 04:30] VITALS: BP 131/61
[2017-08-28 05:37] LABS: CALCIUM 8.3 mg/dL (8.5-10.1); CREATININE 3.6 mg/dL (0.6-1.0); POTASSIUM 3.7 mmol/L (3.5-5.1)
[2017-08-28 08:25] VITALS: BP 143/57
[2017-08-28 15:51] VITALS: BP 163/64
[2017-08-28 19:24] VITALS: BP 171/69
[2017-08-29 03:12] VITALS: BP 177/78
[2017-08-29 04:47] LABS: CALCIUM 9.2 mg/dL (8.5-10.1); POTASSIUM 3.7 mmol/L (3.5-5.1)
[2017-08-29 08:39] VITALS: BP 190/80
[2017-08-29 14:07] VITALS: BP 190/80
[2017-08-29 14:08] LABS: URINE BILIRUBIN NEGATIVE (Negative); URINE BLOOD NEGATIVE (Negative); URINE CLARITY CLEAR; URINE COLOR YELLOW; URINE GLUCOSE-RANDOM* NEGATIVE (Negative); URINE KETONES NEGATIVE (Negative); URINE LEUKOCYTES NEGATIVE (Negative); URINE NITRITE NEGATIVE (Negative); URINE PROTEIN (DIPSTICK) 1+ (Negative); URINE UROBILINOGEN 0.2 E.U./dl (0.2-1.0)
[2017-08-29 14:19] LABS: BACTERIA 1-9 Few /HPF (None Seen); CASTS None Seen /LPF (None Seen); CRYSTALS None Seen /LPF (None Seen); SQUAMOUS 0-3 Few /LPF (0-3); URINE RBC None Seen /HPF (0-2); URINE WBC None Seen /HPF (0-5)
[2017-08-29 19:25] VITALS: BP 180/78
[2017-08-29 22:35] VITALS: BP 160/62
[2017-08-30 07:45] VITALS: BP 131/60
[2017-08-30 11:45] LABS: ALBUMIN 3.2 g/dL (3.4-5.0); CREATININE 3.4 mg/dL (0.6-1.0); PHOSPHORUS 4.6 mg/dL (2.5-4.9); POTASSIUM 4.5 mmol/L (3.5-5.1)
[2017-08-30 21:11] LABS: COMPLEMENT-C3 127 mg/dL (82-167); COMPLEMENT-C4 36 mg/dL (14-44); IgA 289 mg/dL (87-352); IgG 676 mg/dL (700-1600); IgM 40 mg/dL (26-217)
[2017-09-01 12:06] LABS: ANA INTERPRETATION Positive (Negative)
[2017-09-01 13:08] LABS: GLOBULIN TOTAL 2.7 g/dL (2.2-3.9); KAPPA FREE LIGHT CHAINS 45.1 mg/L (3.3-19.4); KAPPA/LAMBDA RATIO 1.78 (0.26-1.65); LAMBDA FREE LIGHT CHAINS 25.4 mg/L (5.7-26.3); M-SPIKE Not Observed g/dL (Not Observed)
== END 2017-08-30 12:50 | disposition left against medical advice (07) | DRG 640 ==
LOC: ER 16:08 → EROBS 17:41 → 4W 17:41 → SICU 08-29 13:48
PROVIDERS: Family Medicine; Hospitalist; Nurse Practitioner
DX: E87.1 Hypo-osmolality and hyponatremia (principal); N17.0 Acute kidney failure with tubular necrosis; I12.9 Hypertensive chronic kidney disease with stage 1 through stage 4 chronic kidney disease, or unspecified chronic kidney disease; I48.91 Unspecified atrial fibrillation; E78.5 Hyperlipidemia, unspecified; G25.81 Restless legs syndrome; D64.9 Anemia, unspecified; S09.90XA Unspecified injury of head, initial encounter; K31.89 Other diseases of stomach and duodenum; N18.9 Chronic kidney disease, unspecified; E11.649 Type 2 diabetes mellitus with hypoglycemia without coma; E11.40 Type 2 diabetes mellitus with diabetic neuropathy, unspecified; E86.9 Volume depletion, unspecified; Z53.21 Procedure and treatment not carried out due to patient leaving prior to being seen by health care provider; E86.0 Dehydration; G47.00 Insomnia, unspecified; S00.03XA Contusion of scalp, initial encounter; Z79.01 Long term (current) use of anticoagulants; Z90.710 Acquired absence of both cervix and uterus; Z90.49 Acquired absence of other specified parts of digestive tract; I25.2 Old myocardial infarction; Z86.73 Personal history of transient ischemic attack (TIA), and cerebral infarction without residual deficits; Z82.49 Family history of ischemic heart disease and other diseases of the circulatory system; W18.39XA Other fall on same level, initial encounter; Y93.89 Activity, other specified; Y92.89 Other specified places as the place of occurrence of the external cause; Y99.8 Other external cause status
CPT/HCPCS: 10045; 15002

== ENCOUNTER → 2018-01-22 | Outpatient (CLI) | payer OTHER ==
[~2018-01-22] MED LIST changes: +TRAMADOL 50 MG50 MG PO
== END ==
LOC: MRI 01-20 09:35
DX: I67.82 Cerebral ischemia (principal); R41.3 Other amnesia; E78.5 Hyperlipidemia, unspecified; I48.91 Unspecified atrial fibrillation; I10 Essential (primary) hypertension; E11.9 Type 2 diabetes mellitus without complications

== ENCOUNTER 2018-05-17 14:18 | Emergency (ER) | payer OTHER ==
[~2018-05-17] VITALS: Ht 170.2 cm; Wt 79.4 kg
[2018-05-17 15:11] LABS: ABSOLUTE NEUTROPHILS 3.8 thou/uL (1.4-8.2); BASOPHILS 0.8 % (0.0-2.0); EOSINOPHILS 2.6 % (0.0-3.0); HEMATOCRIT 30.3 % (37.0-47.0); HEMOGLOBIN 10.7 gm/dL (12.0-15.0); LYMPHOCYTES 30.4 % (24.0-44.0); MCHC 35.3 g/dL (28.0-37.0); PLATELET COUNT 218 thou/uL (150-400); POLYS 58.2 % (36.0-66.0); RBC 3.44 mil/uL (4.20-5.00); WBC 6.5 thou/uL (4.0-11.0)
[2018-05-17 15:17] LABS: CALCIUM 9.8 mg/dL (8.5-10.1); POTASSIUM 4.7 mmol/L (3.5-5.1)
[2018-05-17 16:27] VITALS: BP 136/82
== END 2018-05-17 16:29 | disposition home or self-care (01) ==
LOC: ER 14:18
PROVIDERS: Emergency Medicine
DX: M79.18 Myalgia, other site (principal); I48.91 Unspecified atrial fibrillation; I10 Essential (primary) hypertension; E11.9 Type 2 diabetes mellitus without complications; E78.5 Hyperlipidemia, unspecified; G25.81 Restless legs syndrome; Z86.73 Personal history of transient ischemic attack (TIA), and cerebral infarction without residual deficits; Z86.2 Personal history of diseases of the blood and blood-forming organs and certain disorders involving the immune mechanism; Z90.49 Acquired absence of other specified parts of digestive tract; Z90.710 Acquired absence of both cervix and uterus

== ENCOUNTER 2018-05-30 10:14 | Emergency (ER) | payer OTHER ==
[~2018-05-30] VITALS: Ht 170.2 cm; Wt 86.2 kg
[2018-05-30] MEDS ORDERED: FLEET ENEMA EX230 ML RECTAL (15:19)
[2018-05-30] MEDS ORDERED: MIRALAX17 GM PO (15:19)
[2018-05-30 15:32] VITALS: BP 202/82
== END 2018-05-30 15:32 | disposition home or self-care (01) ==
LOC: ER 10:14
DX: K59.00 Constipation, unspecified (principal); I48.91 Unspecified atrial fibrillation; I10 Essential (primary) hypertension; E11.9 Type 2 diabetes mellitus without complications; E78.5 Hyperlipidemia, unspecified; I25.2 Old myocardial infarction; M79.7 Fibromyalgia; D64.9 Anemia, unspecified; Z90.49 Acquired absence of other specified parts of digestive tract; Z90.710 Acquired absence of both cervix and uterus

== ENCOUNTER → 2018-06-30 | Outpatient (CLI) | payer OTHER ==
[~2018-06-30] MED LIST changes: +FLEET ENEMA EX230 ML RECTAL; +MIRALAX17 GM PO
== END ==
LOC: RAD 01:49
DX: Z12.31 Encounter for screening mammogram for malignant neoplasm of breast (principal)

== ENCOUNTER 2018-08-01 11:38 | Emergency (ER) | payer OTHER ==
[~2018-08-01] VITALS: Ht 157.5 cm; Wt 68.0 kg
[2018-08-01 12:08] LABS: ANION GAP 13 mmol/L (7-16); BUN 75 mg/dL (7-18); CALCIUM 9.2 mg/dL (8.5-10.1); CHLORIDE 100 mmol/L (98-107); CO2 17 mmol/L (21-32); CREATININE 3.1 mg/dL (0.6-1.0); GLUCOSE 212 mg/dL (74-106); POTASSIUM 4.9 mmol/L (3.5-5.1); SODIUM 130 mmol/L (136-145)
[2018-08-01 12:17] LABS: ALBUMIN 3.4 g/dL (3.4-5.0); SGOT 18 U/L (15-37); SGPT 14 U/L (30-65); TOTAL BILIRUBIN 0.5 mg/dL (<0.1-1.0); TOTAL PROTEIN 7.2 g/dL (6.4-8.2); TROPONIN-I <0.06 ng/mL (<0.06)
[2018-08-01 12:29] LABS: ABSOLUTE NEUTROPHILS 4.6 thou/uL (1.4-8.2); BASOPHILS 0.7 % (0.0-2.0); EOSINOPHILS 2.1 % (0.0-3.0); HEMATOCRIT 28.7 % (37.0-47.0); LYMPHOCYTES 21.8 % (24.0-44.0); MCH 30.5 pg (26.0-34.0); MCHC 34.7 g/dL (28.0-37.0); MONOCYTES 6.9 % (1.0-8.0); PLATELET COUNT 242 thou/uL (150-400); POLYS 68.5 % (36.0-66.0); RBC 3.26 mil/uL (4.20-5.00); RDW 12.5 % (10.5-14.5); WBC 6.7 thou/uL (4.0-11.0)
[2018-08-01 14:12] LABS: URINE BILIRUBIN NEGATIVE (Negative); URINE BLOOD NEGATIVE (Negative); URINE CLARITY CLEAR; URINE COLOR YELLOW; URINE GLUCOSE-RANDOM* TRACE (Negative); URINE KETONES NEGATIVE (Negative); URINE LEUKOCYTES TRACE (Negative); URINE NITRITE NEGATIVE (Negative); URINE PROTEIN (DIPSTICK) TRACE (Negative); URINE SPECIFIC GRAVITY <= 1.005 (1.005-1.035); URINE UROBILINOGEN 0.2 E.U./dl (0.2-1.0)
[2018-08-01 14:45] VITALS: BP 165/68
--- NOTE | 2018-08-01 19:17 | EKG ---
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 : 1950 Requested By: Julián Deras Order Number: [id number] MD: Kamlesh Alvarez Measurements Intervals [place] Rate: 65 P: 83 WY: 227 QRS: -18 QRSD: 110 T: -18 QT: 417 QTc: 434 Interpretive Statements Sinus rhythm Prolonged WY interval Nonspecific ST and T wave abnormality Compared to ECG 08/27/2017 16:52:55 No significant change was found Electronically Signed On 08-01-2018 19:17:12 CDT by Kamlesh Alvarez [email or web address] ��������������������������������������������� <ELECTRONICALLY SIGNED> ���������������������������������������� By: Kamlesh Alvarez MD, [facility] ��������������������������������������������� 08/01/18 1917 1149 1149 Kamlesh Alvarez MD, FACC /EPI
== END 2018-08-01 14:45 | disposition home or self-care (01) ==
LOC: ER 11:38
PROVIDERS: Emergency Medicine
DX: I12.9 Hypertensive chronic kidney disease with stage 1 through stage 4 chronic kidney disease, or unspecified chronic kidney disease (principal); E11.22 Type 2 diabetes mellitus with diabetic chronic kidney disease; N18.9 Chronic kidney disease, unspecified; R55 Syncope and collapse; E87.2 Acidosis; I48.91 Unspecified atrial fibrillation; E78.5 Hyperlipidemia, unspecified; G25.81 Restless legs syndrome; M79.7 Fibromyalgia; Z86.73 Personal history of transient ischemic attack (TIA), and cerebral infarction without residual deficits; Z86.2 Personal history of diseases of the blood and blood-forming organs and certain disorders involving the immune mechanism; Z90.49 Acquired absence of other specified parts of digestive tract; Z90.710 Acquired absence of both cervix and uterus

== ENCOUNTER 2019-01-05 04:54 | Inpatient (IN) | payer OTHER ==
[2019-01-05] VITALS (28 sets, daily range): BP systolic 70–174; BP diastolic 35–85
[~2019-01-05] VITALS: Ht 170.2 cm; Wt 76.4 kg
[2019-01-05] MEDS ORDERED: ASPIR 8181 MG PO (05:28)
[2019-01-05] MEDS ORDERED: OMEPRAZOLE 20 M20 M1 PO (05:30)
[2019-01-05] MEDS ORDERED: LINZESS145 MCG PO (05:30)
[2019-01-05] MEDS ORDERED: GLUCOTROL XL2.5 MG PO (05:31)
[2019-01-05 05:37] LABS: HEMATOCRIT 20.1 % (37.0-47.0); HEMOGLOBIN 6.5 gm/dL (12.0-15.0); RBC 2.22 mil/uL (4.20-5.00)
[2019-01-05 05:38] LABS: ABSOLUTE NEUTROPHILS 2.7 thou/uL (1.4-8.2); BASOPHILS 0.6 % (0.0-2.0); EOSINOPHILS 4.7 % (0.0-3.0); MCH 29.2 pg (26.0-34.0); MCHC 32.2 g/dL (28.0-37.0); MCV 90.6 fL (80.0-100.0); MONOCYTES 8.8 % (1.0-8.0); PLATELET COUNT 283 thou/uL (150-400); POLYS 51.9 % (36.0-66.0); RDW 12.8 % (10.5-14.5); WBC 5.2 thou/uL (4.0-11.0)
[2019-01-05 05:43] LABS: CALCIUM 9.1 mg/dL (8.5-10.1); CREATININE 3.9 mg/dL (0.6-1.0); POTASSIUM 5.8 mmol/L (3.5-5.1)
[2019-01-05 06:08] LABS: TROPONIN-I 0.06 ng/mL (<0.06)
[2019-01-05 06:10] LABS: FIBRINOGEN 372.3 mg/dL (210-360); PROTIME 10.4 Seconds (9.3-11.4)
[2019-01-05] MEDS ORDERED: LINZESS72 MCG PO (08:28)
--- NOTE | 2019-01-05 10:43 | 2DMMODE ---
[facility] [place] [place] [address] 2 D/M-MODE ECHOCARDIOGRAM Name: TAMI JOY Room #: 242-P ADM IN M.R.#: [id number] ������������� Admission: 01/05/19 ������������� Attend Phys: Tacos Rodriguez, Discharge: ��� ������������� ��� Date of : 52 �������������������� �� Report #: [id number] �������� ��������������������������������������������[id number] THIS REPORT FOR: //name// APPROVED REPORT Study performed: 01/05/2019 09:04:39 EXAM: Comprehensive 2D, Doppler, and color-flow Echocardiogram Patient Location: ICU Room #: 242 Status: routine BSA: 1.91 HR: 81 bpm BP: 156/67 mmHg Rhythm: NSR Other Information Study Quality: Good Indications Chest pain, acute coronary syndrome. Hx: CAD, PAF, CVA, DM, HTN, HLP. 2D Dimensions RVDd: 38.60 mm IVSd: 10.26 (7-11mm) LVOT Diam: 19.83 (18-24mm) LVDd: 53.05 mm PWd: 10.88 (7-11mm) Ascending Ao: 31.15 (22-36mm) LVDs: 42.54 (25-40mm) Aortic Root: 32.90 mm Volumes Left Atrial Volume (Systole) Single Plane 4CH: 51.02 mL Single Plane 2CH: 65.21 mL LA ESV Index: 34.00 mL/m2 Aortic Valve AoV Peak Mk.: 1.41 m/s AO Peak Gr.: 7.90 mmHg LVOT Max P.11 mmHg LVOT Max V: 0.88 m/s ESTRELLITA Vmax: 1.94 cm2 Mitral Valve E/A Ratio: 0.7 MV Decel. Time: 125.57 ms [facility] [address] [place] [address] 2 D/M-MODE ECHOCARDIOGRAM Name: TAMI JOY Room #: [address] [place] [address] [place] [facility].#: [id number] ������������� Admission: 01/05/19 ������������� Attend Phys: Tacos Rodriguez, Discharge: ��� ������������� ��� Date of : 52 �������������������� �� Report #: [id number] �������� ��������������������������������������������[id number] E Max Mk.: 0.74 m/s MV A Mk.: 1.08 m/s MV PHT: 36.41 ms IVRT: 79.58 ms Pulmonary Valve PV Peak Mk.: 1.06 m/s PV Peak Gr.: 4.47 mmHg Pulmonary Vein P Vein S: 0.89 m/s P Vein A: 0.37 m/s P Vein D: 0.47 m/s P Vein S/D Ratio: 1.89 Tricuspid Valve TR Peak Mk.: 3.21 m/s RAP Estimate: 5.00 mmHg TR Peak Gr.: 41.26 mmHg PA Pressure: 46.00 mmHg Left Ventricle The left ventricle is normal size. There is hypokinesis of the inferior wall. Mild basal septal hypertrophy is present. Left ventricular systolic function is mildly decreased. LVEF is 45%. Mild diastolic dysfunction is present (impaired relaxation pattern). Right Ventricle The right ventricle is normal size. The right ventricular systolic function is normal. Atria Left atrium is mildly dilated. The right atrium size is normal. Aortic Valve The aortic valve is normal in structure; mildly thickened. Mild aortic regurgitation. There is no aortic valvular stenosis. Mitral Valve Mitral valve leaflets are mildly thickened. Mild to moderate mitral regurgitation. Tricuspid Valve The tricuspid valve is normal in structure. Mild to moderate tricuspid regurgitation. Estimated PAP is 45-50mmHg. Pulmonic Valve [facility] [address] [place] [address] 2 D/M-MODE ECHOCARDIOGRAM Name: TAMI JOY Room #: 242-[facility] IN .R.#: [id number] ������������� Admission: 01/05/19 ������������� Attend Phys: Tacos Rodriguez, Discharge: ��� ������������� ��� Date of : 52 �������������������� �� Report #: [id number] �������� ��������������������������������������������[id number] The pulmonary valve is normal in structure. Trace pulmonic regurgitation. Great Vessels The aortic root is normal in size. The ascending aorta is normal in size. IVC is normal in size and collapses >50% with inspiration. Pericardium There is no pericardial effusion. <Conclusion> The left ventricle is normal size. Mild basal septal hypertrophy is present. Left ventricular systolic function is mildly decreased. There is hypokinesis of the inferior wall. Mild diastolic dysfunction is present (impaired relaxation pattern). The right ventricle is normal size. Left atrium is mildly dilated. Mild aortic regurgitation. Mild to moderate mitral regurgitation. Mild to moderate tricuspid regurgitation. Estimated PAP is 45-50mmHg. ��������������������������������������������� <ELECTRONICALLY SIGNED> ���������������������������������������� By: Alin Conway MD ��������������������������������������������� 01/05/19 1042 41 41 Alin Conway MD /INF
[2019-01-05 10:59] LABS: HEMATOCRIT 25.5 % (37.0-47.0); MCH 29.6 pg (26.0-34.0); MCHC 33.5 g/dL (28.0-37.0); MCV 88.2 fL (80.0-100.0); RBC 2.89 mil/uL (4.20-5.00); RDW 13.7 % (10.5-14.5); WBC 6.4 thou/uL (4.0-11.0)
[2019-01-05 11:10] LABS: HEMOGLOBIN 8.6 gm/dL (12.0-15.0)
--- NOTE | 2019-01-05 12:58 | NUR ---
ASSUMED CARE OF PT AT 0730 THIS SHIFT. PT WAS ADMITTED FROM ED, WITH POSSIBLE STEMI, CATH SCHEDULED FOR TOMORROW. PT'S HEMAGLOBIN WAS LOW, WAS GIVEN ONE UNIT IN ED. CARDIOLOGY, NEPHROLOGY, AND GI CONSULTED. PT HAS NOT HAD CHEST PAIN SINCE ARRIVAL, PT IS ON NITRO GTT. EDUCATION WAS PROVIDED, PT IS CURRENTLY RESTING COMFORTABLY IN ROOM.
--- NOTE | 2019-01-05 14:09 | EKG ---
[address] [address] ELECTROCARDIOGRAM REPORT Name: TAMI JOY Room #: 242-P ADM IN M.R.#: [id number] ������������������ Admission: 01/05/19 ������������������ Attend Phys: Tacos Rodriguez MD Discharge: ������������������ Date of : 52 Report #: [id number] ����������������������������������������������������������������� [id number] THIS REPORT FOR: //name// [facility] ED Test Date: 2019-01-05 Test Time: 05:08:39 Pat Name: TAMI JOY Department: Room: 242 Gender: F Input Output Clerk: JAYLON : 1950 Requested By: Hubert Rodriguez Order Number: [id number] MD: Juan F Mullins Measurements Intervals [place] Rate: 93 P: 51 AL: 211 QRS: 33 QRSD: 120 T: -70 QT: 325 QTc: 405 Interpretive Statements Sinus rhythm Borderline prolonged AL interval Nonspecific intraventricular conduction delay Repol abnrm suggests ischemia, diffuse leads Compared to ECG 08/01/2018 11:49:28 Electronically Signed On 01-05-2019 14:08:54 CDT by Juan F Mullins [email or web address] ��������������������������������������������� <ELECTRONICALLY SIGNED> ���������������������������������������� By: Juan F Mullins MD ��������������������������������������������� 01/05/19 1408 0508 0508 Juan F Mullins MD /EPI
[2019-01-05 14:38] LABS: CALCIUM 10.3 mg/dL (8.5-10.1); CREATININE 3.5 mg/dL (0.6-1.0); POTASSIUM 4.8 mmol/L (3.5-5.1)
--- NOTE | 2019-01-05 15:45 | NUR ---
VASCULAR ACCESS CONSULTED FOR CVAD AND LINE APPROVED BT DR LOVING. PT'S LABS,MEDS,HISTORY ,ORDER AND CONSENT VERIFIED. DISCUSSED BENEFITS AND RISK WITH PT,VERBALIZED UNDERSTANDING. 6FR 25CM JACC CATH INSERTED IN RIJ THAT WAS WIDELY PATENT WITH USG. INSERTED TO 7CM EXTERNAL. STAT CXR ORDERED. PT TOLERATED WELL.
--- NOTE | 2019-01-05 16:10 | NUR ---
INITIAL ASSESSMENT: SW reviewed chart and spoke with nursing. Pt was admitted from home due to chest pain and leg pain. Pt to have cardiac cath tomorrow and possibly EGD tomorrow. Nephrology consulted. Pt may need to start dialysis. SW met with pt at bedside. Introduced role of SW. Pt is alert/orientated x 4. Pt reports she lives at home alone in a half-way complex in [place]. No steps to enter and no steps inside. Pt has a cane and walker at home, but does not use them regularly. Pt has used [facility] in the past. Pt's PCP is Dr. Rodriguez. Pt has been to [facility] in the past. Pt's cousin, Bao, is involved in pt's care. Pt does drive and has transportation to medical appointments. SW is following to assist as needed with discharge planning.
--- NOTE | 2019-01-05 16:16 | NUR ---
SPOKE WITH DR GONZALEZ TO CLARIFY CXR REPORT, RECOMMENDED TO PULL BACK 4-5 CM.TOTAL EXTERNAL IS 10CM 2ND CXR ORDERED
--- NOTE | 2019-01-05 16:41 | NUR ---
central line IN DISTAL SVC PER CXR RELEASED TO FRANK MOLINA PER POLICY FOR IMMEDIATE USE.
[2019-01-06] VITALS (35 sets, daily range): BP systolic 100–164; BP diastolic 44–92
[2019-01-06 05:14] LABS: HEMATOCRIT 23.7 % (37.0-47.0); HEMOGLOBIN 7.8 gm/dL (12.0-15.0); MCH 29.2 pg (26.0-34.0); MCV 88.3 fL (80.0-100.0); RBC 2.69 mil/uL (4.20-5.00); RDW 13.8 % (10.5-14.5); WBC 7.1 thou/uL (4.0-11.0)
[2019-01-06 05:27] LABS: ALBUMIN 2.5 g/dL (3.4-5.0); CALCIUM 9.2 mg/dL (8.5-10.1); CREATININE 3.7 mg/dL (0.6-1.0); PHOSPHORUS 4.7 mg/dL (2.5-4.9)
--- NOTE | 2019-01-06 07:49 | HC ---
[facility] [place] [address] CONSULTATION Name: TAMI JOY Room #: 242-P ADM IN M.R.#: [id number] Admission: 01/05/19 ������������������ Attend Phys: Tacos Rodriguez MD Discharge: ������������������ Date of : 52 Report #: [id number] THIS REPORT FOR: //name// CC: Tacos Rodriguez DATE OF SERVICE: 01/05/2019 REASON FOR CONSULTATION: Elevated creatinine. REASON FOR PRESENTATION: Lower extremity pain. HISTORY OF PRESENT ILLNESS: A well-known patient to me. She is on end-stage renal disease. The patient who used to see Dr. Verde in clinic. She has advanced chronic kidney disease due to diabetes mellitus and hypertension. She has extreme noncompliance. She is in the process of being prepared for hemodialysis. Her baseline creatinine is around 4.0. She presented for left lower extremity pain and was found to have electrolyte issues, significantly elevated blood sugar, elevated troponin. I am being asked to evaluate her chronic kidney disease and assist with the management as the patient likely need to go for cardiac catheterization. PAST MEDICAL HISTORY: 1. Diabetes mellitus. 2. Hypertension. 3. Status post cholecystectomy. 4. Left carotid endarterectomy. 5. TIA. 6. Diskectomy. 7. Anemia 8. End-stage renal disease. ALLERGIES: None. REVIEW OF SYSTEMS: GENERAL: Significant for weakness. CARDIOVASCULAR: Reported chest pain. PULMONARY: No cough or hemoptysis. GASTROINTESTINAL: No nausea or vomiting. GENITOURINARY: No frequency, no urgency. NEUROLOGICAL: No syncopal events. MUSCULOSKELETAL: Occasional back pain. MEDICATIONS: 1. Metoprolol. 2. Gabapentin. 3. Omeprazole. [facility] [address] [place] [address] CONSULTATION Name: TAMI JOY Room #: 242-[facility] IN M.R.#: [id number] Admission: 01/05/19 ������������������ Attend Phys: Tacos Rodriguez MD Discharge: ������������������ Date of : 52 Report #: [id number] 4. Glipizide. FAMILY HISTORY: Significant for diabetes mellitus and hypertension. PHYSICAL EXAMINATION: GENERAL: The patient is alert, oriented. Blood pressure is 138/68. HEAD AND NECK: No jugular venous distention, no bruit, no thyromegaly. CHEST: No crackles. CARDIOVASCULAR: No rub detected. ABDOMEN: Soft, nontender with no hepatosplenomegaly. LOWER EXTREMITIES: Trace edema. LABORATORY DATA: Reviewed. Hemoglobin is 6.5. Sodium is 129, potassium is 5.8, chloride is 97, blood sugar 748. IMPRESSION AND PLAN: 1. End-stage renal disease. 2. Hyponatremia. 3. Hyperkalemia. 4. Unstable angina. 5. Anemia. 6. We will rectify the patient's electrolytes today. I will treat her hyperkalemia. 7. We will rectify her acidosis and her hyponatremia is pseudohyponatremia because of an elevated blood sugar. 8. Needs better blood sugar control. 9. Discussed with Dr. Conway and we will discuss with the patient. The patient will likely need to go for cardiac catheterization. Risk of progression to end-stage renal disease and requirement of dialysis will be discussed with the patient. ��������������������������������������������� <ELECTRONICALLY SIGNED> ���������������������������������������� By: Dylan Adames MD ��������������������������������������������� 01/06/19 0749 1024 [id number] Dylan Adames MD /nt
--- NOTE | 2019-01-06 09:21 | HC ---
[facility] [place] [address] CONSULTATION Name: TAMI JOY Room #: 242-P ADM IN M.R.#: [id number] Admission: 01/05/19 ������������������ Attend Phys: Tacos Rodriguez MD Discharge: ������������������ Date of : 52 Report #: [id number] THIS REPORT FOR: //name// CC: Tacos Rodriguez DATE OF SERVICE: 01/05/2019 CARDIOLOGY CONSULTATION INDICATION: Chest pain. HISTORY OF PRESENT ILLNESS: This is a pleasant 68-year-old female with a history of chronic renal insufficiency, diabetes mellitus, CVA, coronary artery disease, PAF, presenting with chest pain. She woke up around 2:00 with substernal chest pain, radiating down both arms. She denies any shortness of breath or diaphoresis. She took an aspirin without relief. She presented to the ER for an evaluation. The initial EKG reveals sinus rhythm with minimal ST depressions in the anterolateral leads. There is no history of fever, nausea or chills. She has a history of PAF, on Xarelto. She took 15 mg less than 24 hours ago. PAST MEDICAL HISTORY: CAD, cardiac catheterization in 2016 revealed moderate disease in the LAD, severe disease in small diagonal arteries. There were borderline lesions in the first obtuse marginal artery. There is a borderline stenosis in the RCA, with a negative FFR. History of prior CVA after discontinuing anticoagulation therapy. History of diabetes mellitus, chronic kidney disease, possible candidate for renal transplant. History of fibromyalgia, restless leg syndrome, PAF, hypertension and hypercholesterolemia. ALLERGIES: None. CURRENT MEDICATIONS: Include aspirin once a day, Neurontin, Lantus, Toprol 25 mg daily, Xarelto 15 mg daily, Requip. SOCIAL HISTORY: Denies tobacco use. FAMILY HISTORY: Negative for premature CAD. REVIEW OF SYSTEMS: A full 10-point review of systems performed. Only the pertinent positives and negatives are described in the HPI. PHYSICAL EXAMINATION: VITAL SIGNS: Blood pressure is 160/70, heart rate is 90 beats per minute. GENERAL APPEARANCE: This is a mildly overweight female, in mild distress. HEENT: Normocephalic, atraumatic. Oral mucosa moist. NECK: Supple. [facility] [address] [place] [address] CONSULTATION Name: TAMI JOY Room #: 242-P ADM IN M.R.#: [id number] Admission: 01/05/19 ������������������ Attend Phys: Tacos Rodriguez MD Discharge: ������������������ Date of : 52 Report #: [id number] LUNGS: Clear to auscultation. CARDIAC: Regular rate and rhythm, S1, S2 positive. ABDOMEN: Soft, nontender. EXTREMITIES: No cyanosis, trace edema. NEUROLOGIC: Alert and oriented x 2. ECG reveals sinus rhythm, [address] depression in the anterolateral leads. LABORATORY VALUES: Hemoglobin is 6.5. INR is 1.0. Sodium is 129, potassium is 5.8, creatinine is 3.9, BUN is 73, glucose is 748. Troponin is 0.06. ASSESSMENT AND PLAN: 1. Acute coronary syndrome/unstable angina, the patient presents with acute onset of chest pains, the ECG shows ST segment depression in the anterolateral leads. The patient has a history of coronary artery disease, complicated by anemia. Given her comorbidities, the plan is to manage her medically at this time with nitro, beta connie and aspirin therapy. She needs a stat transfusion, as this is also contributing to her symptoms. Check an echo at this time. 2. Anemia with hemoglobin of 6.5. The patient is in the process of getting a blood transfusion. She was guaiac negative in the ER, no history of melena or bright red blood per rectum. She will need a GI evaluation. May be related to anemia of chronic disease from her renal failure. 3. Chronic kidney disease, her hydrochloric acid operator is Dr. Verde, we will need a Nephrology followup. 4. Paroxysmal atrial fibrillation, remains in sinus rhythm. However, she had taken Xarelto less than 24 hours. Hold Xarelto at this time. 5. Diabetes mellitus, elevated sugar, received insulin. Continue with medications, probably would benefit from an endocrine evaluation. 6. Hyponatremia, prior history. Follow sodium levels. ��������������������������������������������� <ELECTRONICALLY SIGNED> ���������������������������������������� By: Alin Conway MD ��������������������������������������������� 01/06/19920 07 1 Alin Conway MD /nt
[2019-01-06 10:20] LABS: CALCIUM 9.5 mg/dL (8.5-10.1); CREATININE 3.7 mg/dL (0.6-1.0); POTASSIUM 5.9 mmol/L (3.5-5.1)
[2019-01-06 10:24] LABS: ALBUMIN 2.7 g/dL (3.4-5.0); PHOSPHORUS 3.8 mg/dL (2.5-4.9)
--- NOTE | 2019-01-06 11:10 | NUR ---
Dr. Pickett called re: placement of left chest tunneled dialysis catheter. will start dialysis today; will send provider to bedside for treatment.
--- NOTE | 2019-01-06 19:16 | NUR ---
Shift summary: Pt in good spirits in NAD. Oriented x4. Forgetful at times. Impulsive at times. Denies pain. VSS. Afebrile, SR per monitor. 1+ ankle edema. Room air. Lungs clear. BS active. Huge soft dark brown stool this evening. Tolerating diet. NPO after midnight for EGD and Cardiac Cath. Consents signed. Voiding in small amts. Hemodialysis x 3 hours today, tolerated well. Plan of care reviewed and updated as able.
[2019-01-07] VITALS (29 sets, daily range): BP systolic 101–192; BP diastolic 39–131
--- NOTE | 2019-01-07 00:05 | NUR ---
Pt accidently removed her Rt IJ central line. Gauze with pressure applied at insertiong site. No s/sx of any active bleeding indicates. Central line is intact. Will notify her PCP in am regarding of above.
--- NOTE | 2019-01-07 00:30 | NUR ---
Pt reported of suddent onset of chest pain. She described as squeezing and pressure on her midsternum area. Denies of any radiation. VSS. No changes of cardiac rhythms. Her symptoms is associated with severe anxiety and hyperventilation. EKG obtained and showing no acute. CP last less than 5 mins and completely resolved w/o any intervention. Will continue to monitor her for now.
--- NOTE | 2019-01-07 00:38 | NUR ---
Pt reported suddent onset of CP. She described as squeezing and pressure at mid epigastric area. She was very anxious and hyperventilating during episode. VS stable. No changes of cardiac rhythms. No changes of lunc sound. Assisted her with relaxation technique. EKG obtained. No indication of STEMI. Her CP last < 5 mins and completely resolved w/o any intervention. She will have cardiac cath per gas leak inspector helper report. Continue to monitot any changes.
[2019-01-07 05:35] LABS: HEMATOCRIT 25.8 % (37.0-47.0); HEMOGLOBIN 8.4 gm/dL (12.0-15.0); MCHC 32.7 g/dL (28.0-37.0); MCV 88.6 fL (80.0-100.0); RBC 2.91 mil/uL (4.20-5.00); RDW 13.6 % (10.5-14.5); WBC 6.7 thou/uL (4.0-11.0)
[2019-01-07 05:39] LABS: ALBUMIN 2.8 g/dL (3.4-5.0); CALCIUM 8.7 mg/dL (8.5-10.1); PHOSPHORUS 3.1 mg/dL (2.5-4.9)
--- NOTE | 2019-01-07 06:00 | NUR ---
No changes from last assessment. VS and cardiac rhythms remains stable. No more episode of CP.
[2019-01-07 06:07] LABS: CREATININE 2.5 mg/dL (0.6-1.0); POTASSIUM 4.8 mmol/L (3.5-5.1)
[2019-01-07 07:13] LABS: HEP B SURFACE Ab(ANTI-HBS Reactive (()); HEPATITIS B SURFACE AG Negative (Negative)
--- NOTE | 2019-01-07 07:25 | EKG ---
[address] [place] [address] ELECTROCARDIOGRAM REPORT Name: TAMI JOY Room #: 242-P ADM IN M.R.#: [id number] ������������������ Admission: 01/05/19 ������������������ Attend Phys: Tacos Rodriguez MD Discharge: ������������������ Date of : 52 Report #: [id number] ����������������������������������������������������������������� [id number] THIS REPORT FOR: //name// [facility] Test Date: 2019-01-07 Test Time: 00:20:38 Pat Name: TAMI JOY Department: Room: 242 P Gender: F Wire Mesh Knitter: merissa : 1950 Requested By: Tacos Rodriguez Order Number: [id number] MD: Kamlesh Alvarez Measurements Intervals [place] Rate: 95 P: 50 NE: 175 QRS: -32 QRSD: 95 T: 68 QT: 370 QTc: 465 Interpretive Statements Sinus rhythm Nonspecific ST and T wave abnormality Compared to ECG 01/05/2019 05:08:39 No significant change was found Electronically Signed On 01-07-2019 7:25:17 CDT by Kamlesh Alvarez [email or web address] ��������������������������������������������� <ELECTRONICALLY SIGNED> ���������������������������������������� By: Kamlesh Alvarez MD, [facility] ��������������������������������������������� 01/07/19 0725 0020 0020 Kamlesh Alvarez MD, [facility] /EPI
--- NOTE | 2019-01-07 08:00 | NUR ---
Pt very confused over noc. Appears better this am. Forgetful but currently oriented to person, place, and time but not situation. Plan of care reviewed. Pt in agreement to proceed with EGD and Cardiac Catheterization today. Dr. Adames and Dr. Calloway on rounds. Will hold off on dialysis today to allow for procedures. VSS. K+ 4.8. Report given to Rajani MOLINA GI, Pt to GI lab for EGD.
--- NOTE | 2019-01-07 10:13 | NUR ---
Dr. Calloway in to see patient post EGD. Pepcid 10 mg IV given for GERD. OK to resume diet after cardiac cath. Pt very concerned re: confusion and forgetfulness. Pt does not know where she left her minivan when she drove to the ER. Security called; Kwasi Shelton Minivan located, not parked illegally. OK to leave until discharge.
--- NOTE | 2019-01-07 12:32 | NUR ---
Report called from cardiac cath lab manager. Pt refusing procedure. Unable to continue as it is not an emergent situation. Pt to return to ICU room 242. Will update Dr[address] Rodriguez on refusal.
--- NOTE | 2019-01-07 13:07 | NUR ---
Upon arrival to ICU from CVL pt anxious, states she was too scared to have procedure. Wants to go home. VSS. Afebrile. Oriented to person, place, and year. Room air. Lungs clear. SaO2 98%. BS active. Up to commode to void. 400ml clear yellow urine. Emotional support given. Pt assisted back to bed and bed alarm on. Call light within reach. Dr. Rodriguez's office called with update. Awaiting return call re: plan of care.
--- NOTE | 2019-01-07 13:30 | NUR ---
Pt with increased agitation. Wants to go home. States we can't keep her against her will. Will not stay in bed or chair. Fall risk. Pt dressed herself in clothing and tennis shoes. Pt states she knows we are keeping her here against her will so that we may harvest her organs. Unable to redirect patient at this time. Dr. Rodriguez called and given update. Lucy called to assist with getting patient back to bed.
--- NOTE | 2019-01-07 13:45 | NUR ---
Pt agreed to go back to bed after security arrived in the room. Dr. Rodriguez in to see patient. Orders rec'd for Haldol 5mg IV x1, bilateral soft wrist restraints, and [facility] consult with Dr. Duckworth.
--- NOTE | 2019-01-07 14:13 | NUR ---
Pt again out of bed despite presence of security and being given haldol 5mg IV. Pt assisted to a lying position in bed and bilateral soft wrist restraints placed. cinnamon grinder for [facility] called to evaluate patient. Pt yelling at the top of her lungs for help. Pt does not reorient and will not calm down. Will continue to monitor closely.
--- NOTE | 2019-01-07 15:20 | NUR ---
Notified by Tri Finley RNproduction support supervisor that [facility] only consults on patients to determine whether admission to [facility] unit is appropriate. Will need to consult Dr. Reynoso (Psych) for medical management.
--- NOTE | 2019-01-07 15:29 | NUR ---
Dr. Rodriguez given update via phone. Pt agitated. Kicking and banging on siderails. Additional 5mg Haldol given IV. Dr. Reynoso (Psych) consulted for agitation, confusion, delirium, paranoia, ? dementia. Message left with answering service.
--- NOTE | 2019-01-07 15:58 | NUR ---
Dr. Reynoso in to see patient. Orders rec'd.
--- NOTE | 2019-01-07 16:31 | NUR ---
Dr Pickett given update via phone of day's events. Order rec'd to perform CT head without contrast d/t confusion when calm.
[2019-01-07 16:48] LABS: SGOT 18 U/L (15-37); SGPT 11 U/L (30-65)
--- NOTE | 2019-01-07 17:33 | NUR ---
Pt remains agitated and uncooperative w/ care. Pt refusing depakote and accucheck this evening. Pt refusing bedpan to urinate.
--- NOTE | 2019-01-07 17:44 | NUR ---
Haldol 2mg IV given for agitation d/t pt refusal to take po meds. Unable to redirect patient.
--- NOTE | 2019-01-07 18:45 | NUR ---
Shift summary. Confused. Delirium. Psych following. VSS. AFebrile. Room air. Lungs clear. BS active. Refusing diet. Refusing bedpan. Plan of care reviewed and updated as able. No progress toward discharge goals.
--- NOTE | 2019-01-07 21:04 | P ---
[facility] [place] [address] PROCEDURE REPORT Name: TAMI OJY Room #: 242-P ADM IN M.R.#: [id number] Admission: 01/05/19 ������������������ Attend Phys: Tacos Rodriguez MD Discharge: ������������������ Date of : 52 Report #: [id number] THIS REPORT FOR: //name// CC: Dylan Rodriguez MD DATE OF SERVICE: 01/07/2019 PROCEDURE: Diagnostic esophagogastroduodenoscopy. INDICATION FOR PROCEDURE: Evaluate anemia and heme positive stool in the face of a non-ST segment elevation myocardial infarction. The patient also has recent worsening of her renal failure. Informed consent for this procedure was obtained prior to the administration of any medication. The risks are as follows, and include but are not limited to bleeding, perforation, infection, complications of sedation and the possibility I could miss something. The patient has indicated her consent by signing. PHYSICAL EXAMINATION: GENERAL: Today, she is awake and alert and oriented x 4 and cooperative. HEART: Rate and rhythm are regular with a normal S1 and S2. LUNGS: The lungs are clear bilaterally. ABDOMEN: The abdomen is soft. Bowel sounds are present in all 4 quadrants. There is no palpable organomegaly or mass. There is no tenderness, rebound or guarding. EXTREMITIES: Warm and dry. NEUROLOGIC: She appears grossly intact at this time, although I understand that she was confused through the night. Anesthesia kindly provided deep sedation for this procedure. DESCRIPTION OF PROCEDURE: With the patient in the left lateral decubitus position, the Olympus upper videoscope was introduced through the upper esophageal sphincter and advanced under direct visualization to the third portion of the duodenum. Findings are noted on withdrawal of the scope. The duodenal mucosa visualized, appears intact except for a small duodenal erosion in the second portion of the duodenum. It is nonbleeding and there are no visible vessels in this lesion. Pylorus, normal mucosa. Antrum, normal mucosa. Body, normal mucosa. Cardia and fundus, normal mucosa. Retroflex view did not reveal any abnormalities. The scope was withdrawn into the esophagus. The Z-line is appropriately located at the top of the gastric folds and appears normal. The esophageal mucosa is mildly erythematous distally, which I think is consistent with gastroesophageal reflux. There is no mucosal damage. The [address] [address] PROCEDURE REPORT Name: TAMI JOY Room #: 242-P [facility] IN M.R.#: [id number] Admission: 01/05/19 ������������������ Attend Phys: Tacos Rodriguez MD Discharge: ������������������ Date of : 52 Report #: [id number] esophageal mucosa otherwise is normal throughout its entirety. The scope was withdrawn. The patient went to the recovery area in stable condition. She tolerated the procedure well. IMPRESSION: 1. Shallow duodenal erosion in the second portion of the duodenum, nonbleeding, no visible vessels. 2. Mild distal esophageal erythema, nonbleeding, no visible vessels. RECOMMENDATIONS: 1. My recommendations were for her to start on H2 receptor antagonist such as Pepcid. I have ordered this to be given IV push b.i.d. as 20 mg each time. The patient is n.p.o. today for a cardiac catheterization. 2. Diet as tolerated after the catheterization. 3. We will recheck her H and H in the morning. Her stool is heme negative and I suspect that her anemia is related to her renal disease. Thank you very much once again for allowing me to participate in her care, Dr. Rodriguez. ��������������������������������������������� <ELECTRONICALLY SIGNED> ���������������������������������������� By: Pattie Calloway DO ��������������������������������������������� 01/07/19 [id number] Pattie Calloway DO /nt
[2019-01-08] VITALS (21 sets, daily range): BP systolic 111–190; BP diastolic 52–87
[2019-01-08 05:51] LABS: HEMATOCRIT 27.2 % (37.0-47.0); HEMOGLOBIN 9.1 gm/dL (12.0-15.0)
[2019-01-08 07:50] LABS: CALCIUM 9.1 mg/dL (8.5-10.1); CREATININE 3.1 mg/dL (0.6-1.0); PHOSPHORUS 3.6 mg/dL (2.5-4.9); POTASSIUM 4.8 mmol/L (3.5-5.1)
--- NOTE | 2019-01-08 15:00 | NUR ---
Up to commode then chair at bedside. Dr. Reynoso in to see patient. Pt spoke with brother via telephone. Pt agreeable to having CT of the head without contrast.
--- NOTE | 2019-01-08 16:17 | NUR ---
OK for patient to transfer to [facility]. Will obtain CT of head without contrast on way to new patient room.
[2019-01-08 16:33] LABS: % SATURATION 15 % (20-39); IRON 40 ug/dL (50-170); TIBC 262 ug/dL (250-450)
--- NOTE | 2019-01-08 17:22 | NUR ---
FOLLOWING FOR DC PLANNING. CLINICAL INFO REVIEWED AND NOTED DR. LOVING'S NOTE STATING [facility] NEEDS TO BE SET UP. SPOKE WITH BRISEIDA AT [facility] AND SHE INDICATES PT ON THEIR CKD GROUP AND HAVE DISCUSSED WITH PT [facility] AND PT IDICATED S HE WANTED CLINIC IN [facility]. MET WITH PT WHO IS ALERT AND ORIENTED AND PT INDICATES SHE RECALLS CONVERSATION AND UNDERSTANDS IF CHOOSES CLINIC IN [facility] SHE WOULD NEED TO CHANGE NEPHROLOGY GROUPS. SHE WISHES TO PROCEED WITH REFERRAL TO [facility]. CALLED INTAKE AND DIALYSIS ADMISSIONS CHECKLIST FAXED TO [facility] AND WILL FAX FRIDAY NEED A COUPLE MORE ITEMS ON LIST NOT CURRENTLY AVAILABLE. PT PLANS TO TRANSPORT SELF.
--- NOTE | 2019-01-08 17:55 | NUR ---
Shift summary: Up in chair since 3pm, awaiting medsurg bed. Pt in better spirits. Oriented to person, place and time but not always situation. Denies pain. VSS. Afebrile. SR. Room air. Lungs clear. Slept through breakfast and lunch, ate 100% dinner. BM x 2 today. Up to commode to void. No dialysis today. Plan of care reviewed and updated as able. Pt needs CT head without contrast tonight en route to new bed assignment.
--- NOTE | 2019-01-08 18:23 | NUR ---
Report called to Shirley MOLINA on 4E. Pt to transfer to room 429 via wheelchair.
--- NOTE | 2019-01-08 18:56 | NUR ---
Pt to radiology for CT head w/o contrast due to increased confusion over last few days then to room 429P via wheelchair. Tolerated transfer well.
--- NOTE | 2019-01-08 23:25 | NUR ---
PT WAS TRANSFERRED FROM ICU AT SHIFT CHANGE.ASSESSMENT COMPLETED.PT ALERT AND ORIENTED,NO CONFUSION NOTED.DIALYSIS CATH ON HER L CHEST,DRSG C/D/I.PT DENIED PAIN SO FAR.PT RESTING ON HER BED AT THIS TIME.FALL PRECAUTIONS IN PLACE,CALL LIGHT WITHIN REACH.
[2019-01-09 04:23] VITALS: BP 134/68
[2019-01-09 06:12] LABS: ALBUMIN 2.7 g/dL (3.4-5.0); CALCIUM 8.8 mg/dL (8.5-10.1); CREATININE 3.6 mg/dL (0.6-1.0); PHOSPHORUS 4.5 mg/dL (2.5-4.9); POTASSIUM 3.9 mmol/L (3.5-5.1)
[2019-01-09 08:00] VITALS: BP 160/55
[2019-01-09 11:33] VITALS: BP 160/55
--- NOTE | 2019-01-09 15:29 | NUR ---
PT A&OX3, VSS, DENIES PAIN. PATIENT HAD DIALYSIS TODAY, NO FLUIDS TAKEN OFF. MEDS HELD WHILE PATIENT IN DIALYSIS. BREATHING REG, NO SIGNS OF DISTRESS. DIALYSIS PORT LEFT CHEST INTACT AND BANDAGE ON END AFTER TREATMENT. WILL CONTINUE TO MONITOR.
--- NOTE | 2019-01-09 19:40 | NUR ---
AT 1810,PT ELOPED FROM THE UNIT.RNS AND COMMERCIAL ADMINISTRATOR SEARCHED THE UNIT AND WHOLE HOSPITAL AND PT WAS NOWHERE TO BE FOUND.[facility] AND ARRESTING GEAR OFFICER AND SECURITY NOTIFIED. PT WAS NOT FOUND AFTER SEARCHING BY THE SECURITY.AT 1845,CALE KRISHNAMURTHY PT'S COUSIN NOTIFIED.HE SAID HE WILL BRING PT'S BACK TO HOSPITAL IF FOUND HER AT HER HOUSE.AROUND 1900,I RECEIVED CALL FROM [facility] AND ARRESTING GEAR OFFICER THAT PT WAS AT HOME SAFE AND SOUND.SHE WAS THE ONE THAT POWER PLANT INSPECTOR HER PHONE WHEN CALLED BY FIRE DEPT.
[2019-01-11 06:23] LABS: ALBUMIN 2.8 g/dL (3.4-5.0); CALCIUM 8.6 mg/dL (8.5-10.1); CREATININE 3.4 mg/dL (0.6-1.0); PHOSPHORUS 4.5 mg/dL (2.5-4.9); POTASSIUM 3.3 mmol/L (3.5-5.1)
== END 2019-01-09 18:10 | disposition left against medical advice (07) | DRG 280 ==
LOC: ER 04:54 → EROBS 06:43 → ICU 06:43 → 4E 01-08 18:55
PROVIDERS: Emergency Medicine; Hospitalist; Internal Medicine Cardiovascular Disease; Internal Medicine Gastroenterology; Nurse Practitioner; Psychiatry & Neurology Psychiatry; ADMIT Family Medicine
PROC: 30233N1 Transfusion of Nonautologous Red Blood Cells into Peripheral Vein, Percutaneous Approach (ICD-10-PCS; principal; 2019-01-05)
PROC: 0JH63XZ Insertion of Tunneled Vascular Access Device into Chest Subcutaneous Tissue and Fascia, Percutaneous Approach (ICD-10-PCS; 2019-01-06)
PROC: B2141ZZ Fluoroscopy of Right Heart using Low Osmolar Contrast (ICD-10-PCS; 2019-01-06)
PROC: 02H633Z Insertion of Infusion Device into Right Atrium, Percutaneous Approach (ICD-10-PCS; 2019-01-06)
PROC: 5A1D70Z Performance of Urinary Filtration, Intermittent, Less than 6 Hours Per Day (ICD-10-PCS; 2019-01-06)
PROC: B244ZZZ Ultrasonography of Right Heart (ICD-10-PCS; 2019-01-06)
PROC: 0DJ08ZZ Inspection of Upper Intestinal Tract, Via Natural or Artificial Opening Endoscopic (ICD-10-PCS; 2019-01-07)
PROC: 5A1D70Z Performance of Urinary Filtration, Intermittent, Less than 6 Hours Per Day (ICD-10-PCS; 2019-01-09)
DX: I21.3 ST elevation (STEMI) myocardial infarction of unspecified site (principal); N18.6 End stage renal disease; E87.1 Hypo-osmolality and hyponatremia; E87.2 Acidosis; N17.9 Acute kidney failure, unspecified; I12.0 Hypertensive chronic kidney disease with stage 5 chronic kidney disease or end stage renal disease; E78.5 Hyperlipidemia, unspecified; G25.81 Restless legs syndrome; E11.40 Type 2 diabetes mellitus with diabetic neuropathy, unspecified; E11.65 Type 2 diabetes mellitus with hyperglycemia; E87.5 Hyperkalemia; E78.00 Pure hypercholesterolemia, unspecified; I24.9 Acute ischemic heart disease, unspecified; I48.0 Paroxysmal atrial fibrillation; L53.8 Other specified erythematous conditions; E11.51 Type 2 diabetes mellitus with diabetic peripheral angiopathy without gangrene; I25.110 Atherosclerotic heart disease of native coronary artery with unstable angina pectoris; D63.8 Anemia in other chronic diseases classified elsewhere; R41.0 Disorientation, unspecified; F03.90 Unspecified dementia, unspecified severity, without behavioral disturbance, psychotic disturbance, mood disturbance, and anxiety; E11.22 Type 2 diabetes mellitus with diabetic chronic kidney disease; Z99.2 Dependence on renal dialysis; D50.0 Iron deficiency anemia secondary to blood loss (chronic); Z60.2 Problems related to living alone; Z79.4 Long term (current) use of insulin; Z90.710 Acquired absence of both cervix and uterus; Z90.49 Acquired absence of other specified parts of digestive tract; I25.2 Old myocardial infarction; Z86.73 Personal history of transient ischemic attack (TIA), and cerebral infarction without residual deficits; Z79.899 Other long term (current) drug therapy; Z91.19 Patient's noncompliance with other medical treatment and regimen; Z79.82 Long term (current) use of aspirin; K26.9 Duodenal ulcer, unspecified as acute or chronic, without hemorrhage or perforation; K29.70 Gastritis, unspecified, without bleeding
CPT/HCPCS: 10078; 10783; 32100; 62110; 62900

== ENCOUNTER 2019-01-09 20:58 | Inpatient (IN) | payer OTHER ==
[~2019-01-09] VITALS: Ht 170.2 cm; Wt 79.4 kg
[~2019-01-09 20:58] MED LIST changes: +ASPIR 8181 MG PO; +GLUCOTROL XL2.5 MG PO; +LINZESS145 MCG PO; +LINZESS72 MCG PO; +OMEPRAZOLE 20 M20 M1 PO
[2019-01-09 21:03] VITALS: BP 146/73
[2019-01-09 22:00] LABS: ABSOLUTE NEUTROPHILS 6.1 thou/uL (1.4-8.2); BASOPHILS 0.3 % (0.0-2.0); HEMOGLOBIN 9.2 gm/dL (12.0-15.0); LYMPHOCYTES 13.7 % (24.0-44.0); MCH 28.8 pg (26.0-34.0); MCHC 32.7 g/dL (28.0-37.0); MCV 88.1 fL (80.0-100.0); MONOCYTES 7.6 % (1.0-8.0); PLATELET COUNT 239 thou/uL (150-400); POLYS 78.4 % (36.0-66.0); RBC 3.18 mil/uL (4.20-5.00); RDW 13.3 % (10.5-14.5); WBC 7.7 thou/uL (4.0-11.0)
[2019-01-09 22:10] LABS: CALCIUM 8.9 mg/dL (8.5-10.1); CREATININE 2.8 mg/dL (0.6-1.0); POTASSIUM 4.2 mmol/L (3.5-5.1)
[2019-01-09 22:59] VITALS: BP 159/74
[2019-01-09 23:16] VITALS: BP 143/79
[2019-01-10 00:31] VITALS: BP 169/89
--- NOTE | 2019-01-10 02:01 | NUR ---
PT WAS ADMITTED FROM THE ER AT APPROX 2330 AFTER PT ELOPED FROM THE UNIT EARLIER DURING DAY SHIFT.PT ALERT WITH FORGETFULNESS.ADMISSION HX,EDUCATION AND ASSESSMENT COMPLETED.L CHEST TUNNELED DIALYSIS CATH IN PLACE.PT UP ADLIB IN ROOM WITH SBA.PT STATED THAT SHE DROVE HERSELF HOME.PT RESTING ON HER BED AT THIS TIME WITH A SITTER IN HER ROOM.CALL LIGHT WITHIN REACH.
[2019-01-10 07:28] VITALS: BP 166/76
[2019-01-10 16:00] VITALS: BP 150/56
--- NOTE | 2019-01-10 16:38 | NUR ---
PT A&OX4 THOUGH SEVERE SHORT TERM MEMORY LOSS AND CONFUSION. NO IV PRESENT. AMBULATES WITH NOTED UNSTEADY GAIT. PT DID WANT AND TRY TO LEAVE THIS AM CALLED HER COUSIN CALE AND TOLD HIM SHE WAS "RELEASED" AND ASKED HIM TO PICK HER UP ALSO STATED TO 1:1 LAND DEVELOPMENT PROJECT MANAGER THAT SHE CANT STOP HER THAT SHE IS NOT HER BOSS. THE COUSIN CALLED AND ASKED IF SHE WAS "RELEASED" I STATED NO. PT WAS ABLE TO BE REDIRECTED, EXPLAINED TO PT WHY SHE IS HERE THAT FURTHER TESTING NEEDS TO BE COMPLTED. WHEN ASKED WHY SHE REFUSED HEART CATH SHE STATED SHE WAS SCARED. WHEN I ASKED WHY SHE WANTS TO LEAVE SO MUCH SHE SAID SHE JUST MISSES HER HOME, PT IS RETIRED. LAND DEVELOPMENT PROJECT MANAGER WAS REMOVED FROM INSIDE THE THE ROOM THOUGH OBSERVING PT OUTSIDE OF ROOM TO REDUCE ANXIETY/AGITATION. WILL CONT POC.
[2019-01-10 19:33] VITALS: BP 168/89
--- NOTE | 2019-01-11 01:30 | NUR ---
ASSESSMENT COMPLETED. PT IS ALERT AND ORIENTED. REMAINS AN ELOPEMENT RISK WITH ALL PRECAUTIONS IN PLACE.PT C/O IN THE BACK OF LEFT KNEE.NO WARMTH OR SWELLING NOTED TO LEG. WALKED WITH PT ROUND THE BOWEN WAY THEN WRAPPED A WARM BLANKET ROUND THE LEG, PT REPORTS RELIEF. DENIES ANY NAUSEA. PT KEEPS ASKING WHETHER SHE WILL HAVE STENT PLACED TOMORROW.SHE IS SOMEWHAT RESTLESS.SHE IS USING CALL LIGHT FOR NEEDS. WILL CONTINUE WITH POC TILL EOS.
[2019-01-11 04:38] VITALS: BP 144/56
[2019-01-11 07:07] LABS: ALBUMIN 2.8 g/dL (3.4-5.0); CALCIUM 8.6 mg/dL (8.5-10.1); CREATININE 3.4 mg/dL (0.6-1.0); PHOSPHORUS 4.6 mg/dL (2.5-4.9); POTASSIUM 3.4 mmol/L (3.5-5.1)
[2019-01-11 08:15] VITALS: BP 121/58
[2019-01-11] MEDS ORDERED: HYDROCODON-ACE1 EAC7 PO (12:43)
[2019-01-11] MEDS ORDERED: DEPAKOTE SPRIN125 MG PO (12:43)
[2019-01-11] MEDS ORDERED: PANTOPRAZOLE SO40 M1 PO (12:43)
--- NOTE | 2019-01-11 14:38 | NUR ---
ASSUMED CARE AT 0700, SHIFT ASSESSMENT DONE, MEDS GIVEN, VSS. DENIES PAIN, NAUSEA, VOMITING. ELOPEMENT RISK, UNIT DOORS CLOSED. PT WENT TO Managed by [employer] TO BUY SOME THINGS FOR HER, ACCOMPANIED BY UNIT STAFF. DISCHARGE ORDER ENTERED BY DR REYES, PENDING DISCHARGE; DR SAHU SAW THE PT, WILL NOT BE ABLE TO TAKE HER UP TO THE PSYCH FLOOR PT STILL HAS DIALYSIS CATH. DR ROGERS HAS BEEN CONSULTED, AWAITING FOR EVAL. WILL CONTINUE TO ASSES AND ASSIST WITH ADLs NEEDED.
[2019-01-11 16:25] VITALS: BP 143/65
--- NOTE | 2019-01-11 16:38 | NUR ---
PT ADMITTED RELATED TO [facility], [facility]. CM REVIEWED CHART AND SPOKE WITH CARE TEAM. PT INDICATED SHE LIVES IN A SHELTER COMUNITY IN [facility]. SHE INDICATED THERE ARE NO STEPS TO ENTER AND NO STEPS INSIDE. PT INDICATED SHE HAD BEEN INDEPDEPENT WITH GAIT AND ADLS DOOR HANGER BUT THAT SHE HAD A CANE AND FWW SHOULD SHE NEED THEM. PT HAD BEEN ON SERVICE WITH [facility] IN THE PAST. PT INDICATED SHE HOPES TO RETURN HOME ONCE MEDICALLY STABLE. CARE TEAM HAD STARTED TO ESTABLISHE PT WITH [facility] BUT AWAITING FURTHER DIRECTION ON IF THAT SHOULD BE SET UP. PT ELOPED OVER WEEKEND AND WAS BROUGHT BACK NOW LOOKING INTO ADMISSION TO . CM TO FOLLOW INDICATED WITH DC PLANNING.
[2019-01-11 19:41] VITALS: BP 153/75
[2019-01-12 04:15] VITALS: BP 140/53
--- NOTE | 2019-01-12 04:16 | NUR ---
PT IS ALERT AND ORIEBTED *4.ELOPEMENT RISK STILL ACTIVE.PATIENT DENIES PAIN AND N/V.PT IS UP AND AISSATOU.PT VOICED NO CONCERNS .
[2019-01-12 06:31] LABS: ALBUMIN 2.7 g/dL (3.4-5.0); CALCIUM 8.4 mg/dL (8.5-10.1); CREATININE 3.3 mg/dL (0.6-1.0); PHOSPHORUS 4.5 mg/dL (2.5-4.9); POTASSIUM 3.8 mmol/L (3.5-5.1)
[2019-01-12 08:15] VITALS: BP 160/71
[2019-01-12 13:02] VITALS: BP 134/48
[2019-01-12 13:30] VITALS: BP 145/61
[2019-01-12 14:28] VITALS: BP 152/62
--- NOTE | 2019-01-12 15:03 | NUR ---
CARE TEAM INDICATE THAT PT IS MEDICALLY STABLE TO DISCHARGE TO [address] [place] [address] TODAY. CHART COPY MADE. CM NOTIFIED PT'S COUSIN. CM UNCERTAIN OF TIME OF ADMISSION. NO OTEHER CM INTERVENTION INDICATED. CASE CLOSED.
[2019-01-12 15:38] VITALS: BP 163/70
--- NOTE | 2019-01-12 16:29 | NUR ---
PATIENT HAS BEEN CALM AND COOPERATIVE THIS SHIFT. PATIENT DENIES LEAVING HOSPITAL IN MIDDLE OF ADMISSION. SHOWS NO SIGNS OF ELOPEMENT THIS SHIFT. UP AD AISSATOU WITH STEADY GAIT. DIALYSIS CATH REMOVED BY IR THIS SHIFT. CALLED 5S, SB TO INFORM THEM AT 13:10, SPOKE WITH DR. SPRINGER TO INFORM OF PATIENT STATUS. CURRENTLY WAITING FOR PATIENT TO ADMIT TO [address] [place] [address].
== END 2019-01-12 17:47 | DRG 280 ==
LOC: ER 20:58 → 4E 22:24 → EROBS 22:24 → 4E 23:21
PROVIDERS: Emergency Medicine; Hospitalist; ADMIT Family Medicine
PROC: 0JPV3XZ Removal of Tunneled Vascular Access Device from Upper Extremity Subcutaneous Tissue and Fascia, Percutaneous Approach (ICD-10-PCS; principal; 2019-01-12)
PROC: 05PYX3Z Removal of Infusion Device from Upper Vein, External Approach (ICD-10-PCS; principal; 2019-01-12)
DX: I21.4 Non-ST elevation (NSTEMI) myocardial infarction (principal); N18.6 End stage renal disease; E87.1 Hypo-osmolality and hyponatremia; I12.0 Hypertensive chronic kidney disease with stage 5 chronic kidney disease or end stage renal disease; E87.2 Acidosis; N17.9 Acute kidney failure, unspecified; E11.51 Type 2 diabetes mellitus with diabetic peripheral angiopathy without gangrene; E87.5 Hyperkalemia; D64.9 Anemia, unspecified; I25.110 Atherosclerotic heart disease of native coronary artery with unstable angina pectoris; F03.90 Unspecified dementia, unspecified severity, without behavioral disturbance, psychotic disturbance, mood disturbance, and anxiety; R41.0 Disorientation, unspecified; M79.7 Fibromyalgia; E11.40 Type 2 diabetes mellitus with diabetic neuropathy, unspecified; G25.81 Restless legs syndrome; E78.5 Hyperlipidemia, unspecified; E11.22 Type 2 diabetes mellitus with diabetic chronic kidney disease; I48.91 Unspecified atrial fibrillation; Z90.49 Acquired absence of other specified parts of digestive tract; Z90.710 Acquired absence of both cervix and uterus; I25.2 Old myocardial infarction; Z86.73 Personal history of transient ischemic attack (TIA), and cerebral infarction without residual deficits; Z79.82 Long term (current) use of aspirin; Z79.84 Long term (current) use of oral hypoglycemic drugs; Z99.2 Dependence on renal dialysis; Z91.19 Patient's noncompliance with other medical treatment and regimen
CPT/HCPCS: 10084

== ENCOUNTER 2019-01-12 14:04 | Inpatient (IN) | payer OTHER ==
[~2019-01-12] VITALS: Ht 170.2 cm; Wt 84.3 kg
[~2019-01-12 14:04] MED LIST changes: +DEPAKOTE SPRIN125 MG PO; +PANTOPRAZOLE SO40 M1 PO
[2019-01-12 20:24] VITALS: BP 125/59
--- NOTE | 2019-01-13 01:55 | NUR ---
The pt. arrived to the unit at [address] [place] [address]. She was in the ICU here and then went to [facility] on 01-08-19. On Friday day she eloped from the unit, drove herself home, then family brought her back to hospital in the evening. She had not indicated her desire to leave to anyone. She did not recall then how she got home or that she left. She had recently gotten dialysis cath and has only had 2 treatments. Was taken to fence laborer agreeing to a heart cath then changed her mind and refused, saying she was scared. . She had called her cousin and said she was going home, (from [facility]), which was not true. The dialysis was temporary and the dialysis port was removed. Left chest dressing intact. When she arrived, she was soft-spoken, wanted to go the television room when she sat quietly watching TV. She was compliant with assessment, A/O x2, asked for her medications and wanted to go to bed. She had a flat affect, denied that she was depressed. Answered questions with single words, poverty of content, calm. She has NSTEMI no chest pain, CHON with CKD, DMII, Afib rate controlled, HTN, Anemia, HLD, CAD. . She denied pain. VSS. Her DPOA is her brother.
--- NOTE | 2019-01-13 04:18 | NUR ---
The pts. belongings were inventoried when she arrived and contraband/valuables given to security. She had a folding knife and over $600 in sprague and coins among other valuables/ID's, cards.
--- NOTE | 2019-01-13 05:30 | NUR ---
The pt. slept soundly all nite.
[2019-01-13 09:00] VITALS: BP 126/51
--- NOTE | 2019-01-13 09:00 | NUR ---
PT IN DINNING ROOM. PT CALM AND COOROPERATIVE. PT DENIES ANY PAIN. PT TAKING MEDS WITHOUT ANY ISSUES.
--- NOTE | 2019-01-13 19:00 | NUR ---
NO ISSUES THIS SHIFT. PT COOROPERATING IN GROUPS.
--- NOTE | 2019-01-14 05:32 | NUR ---
1909-Report received and care assumed. Joe had a blunted affect, soft spoken, and was in the day room watching television. She was medication compliant and went to bed, ambulating independently without difficulty. She was lying awake in bed and and then asked "did you hear that lady yelling for help?" She was redirected to the unit and she said "Oh, I was just wondering if I should help her." She had difficulty falling asleep and asked for a sleep aid, after sitting in the day room reading, and said she had used Melatonin prior. The practitioner was called and an order was received for Melatonin 5 mg. po x 1 now which she was given at 0030. It was effective as she fell asleep and slept since then.
[2019-01-14 06:17] LABS: ALBUMIN 2.7 g/dL (3.4-5.0); CALCIUM 8.5 mg/dL (8.5-10.1); CREATININE 3.4 mg/dL (0.6-1.0); PHOSPHORUS 4.4 mg/dL (2.5-4.9); POTASSIUM 4.1 mmol/L (3.5-5.1)
[2019-01-14 07:12] VITALS: BP 124/53
[2019-01-14 08:00] VITALS: BP 124/53
--- NOTE | 2019-01-14 10:38 | NUR ---
assumed pt care report received from nurse. pt is aox4. denies pain, no complaint. participates in group along with other patients. pt is calm. accucheck, insulin given. ate breakfast. will continue to monitor
[2019-01-14 19:14] VITALS: BP 129/63
[2019-01-14 20:10] LABS: SYPHILIS AB Negative (Negative)
--- NOTE | 2019-01-15 01:14 | NUR ---
PATIENT CAME TO NURSE'S STATION AT 0010 REQUESTING SOMETHING TO HELP HER TO SLEEP. SHE DID NOT HAVE A PRN FOR SLEEP BUT SHE DID SAY SHE WAS FEELING A LITTLE ACHEY. TYLENOL 650MG GIVEN. PATIENT'S DISCOMFORT WENT AWAY BUT PATIENT BACK UP NOW BECAUSE SHE CANNOT SLEEP. SHE IS SITTING UP IN THE DINING ROOM AT THIS TIME. WAITING FOR A CALL BACK FROM DR SPRINGER FOR PRN SLEEP ORDER.
[2019-01-15 01:19] VITALS: BP 129/63
[2019-01-15 05:26] LABS: ALBUMIN 2.8 g/dL (3.4-5.0); CALCIUM 8.1 mg/dL (8.5-10.1); CREATININE 3.4 mg/dL (0.6-1.0); PHOSPHORUS 4.6 mg/dL (2.5-4.9); POTASSIUM 4.6 mmol/L (3.5-5.1)
[2019-01-15 07:46] VITALS: BP 155/62
--- NOTE | 2019-01-15 11:00 | NUR ---
PATIENT SLEEPING IN BED ALL MORNING. SLEPT 6 HOURS LAST NIGHT AND WAS GIVEN A NEW MED, 50MG QUETIAPINE AT 0152 LAST NIGHT AND PERHAPS THE REASON SHE IS SLEEPY. POC GLUCOSE 153 AND VITAL SIGNS STABLE. NO INSULIN GIVEN BECAUSE PATIENT DIDN'T EAT BREAKFAST.
--- NOTE | 2019-01-15 15:38 | NUR ---
PATIENT SLEPT MOST OF THE MORNING, ABOUT 3 HOURS AFTER SLEEPING 6 HOURS LAST NIGHT. PATIENT STATES SLEEPING PILL SHE WAS GIVEN LAST NIGHT WAS TOO STRONG AND ALSO SHE HASN'T SLEPT WELL THE LAST FEW NIGHTS. SHE DIDN'T EAT BREAKFAST BECAUSE SHE WAS SLEEPING. PATIENT WAS IN DAY ROOM FOR LUNCH. NEUROPSYCH ON UNIT WITH PATIENT FOR TESTING THIS AFTERNOON. PATIENT CONTINUES TO STATE SHE IS TIRED.
--- NOTE | 2019-01-15 16:55 | NUR ---
Sharon spoke with pt's brother Keo [phone]. And he has concerns that his sister may not be able to handle being at home alone. He is motivated to help with d/c planing. He is abdulaziz vacation this next week but is willign to have a phone conference on Friday at 11am. Sharon emailed this to Clinical Laboratory Director and Dr Duckworth
[2019-01-15 20:01] VITALS: BP 146/54
--- NOTE | 2019-01-16 05:23 | NUR ---
1909-Report received from the day shift nurse and care assumed. She was compliant with HS medications and had a flat affect. c.o.generalized pain and given Tylenol at HS medication time and she slept well in the nite with no further c.o. pain.
[2019-01-16 08:15] VITALS: BP 123/57
[2019-01-16 09:16] VITALS: BP 123/57
--- NOTE | 2019-01-16 10:06 | H ---
[facility] [place] [address] HISTORY AND PHYSICAL Name: TAMI JOY Room #: 524A-A ADM IN M.R.#: [id number] Admission: 01/12/19 Attend Phys: Daryl Duckworth DO Discharge: Date of : 51 Report #: [id number] THIS REPORT FOR: //name// CC: Daryl Rodriguez DATE OF SERVICE: 01/13/2019 ATTENDING PHYSICIAN: Daryl Duckworth DO. PHOTOGEOLOGIST: Tacos Rodriguez MD REASON FOR ADMISSION: Cognitive impairment, eloping from the hospital. SOURCES OF INFORMATION: Interview with the patient. Note, the patient was [facility] to [facility] in the [address] [place] [address]. HISTORY OF PRESENT ILLNESS: A 68-year-old female initially admitted last week, then she eloped on from the medicine floor. She had been lucid. Speaking with staff did not indicate a desire to leave, was found at home, brought back by family, does not recall how she got home or left, had recently gotten dialysis catheter and had only 2 treatments, last one was I believe Friday. She was hospitalized with NSTEMI and taken to the laboratory apparatus glass grinder after agreeing to a heart catheterization and then changed her mind and refused. She also had an EGD for anemia and heme positive stools, showed gastritis, but no acute bleed, having showing signs of confusion in the ICU, but did improve. Medical problems known as follows: Abnormal LFTs. Acute on chronic renal failure, atrial fibrillation, acute kidney injury, anemia, acute renal failure, chest pain, congestive heart failure, chronic anticoagulation, chronic renal failure, chronic kidney disease, constipation, diarrhea, elevated lactic level, gastroenteritis, generalized weakness, head injury I am not sure what, history of atrial fibrillation, hyperglycemia, hypochlorhydria, hypokalemia, hypomagnesemia, hyponatremia, metabolic acidosis, myalgia, and nausea. I am thinking some of these are probably historical but she did have an NSTEMI. ALLERGIES: No known allergies. LABORATORY DATA: On the , sodium 136, potassium 4.2, chloride 97, bicarbonate 25, anion gap of 14, BUN 21, creatinine 2.8, estimated GFR 17, glucose 211, calcium 8.9, white count 7.7. H and H 9.2 and 28.0, platelet count 239. PAST MEDICAL HISTORY: Atrial fibrillation, hypertension, insulin-dependent diabetes mellitus, hyperlipidemia, restless leg syndrome, bilateral lower extremity neuropathy, IA, fibromyalgia, anemia. [address] [address] HISTORY AND PHYSICAL Name: TAMI JOY Room #: 524A-A ADM IN .R.#: [id number] Admission: 01/12/19 Attend Phys: Daryl Duckworth DO Discharge: Date of : 52 Report #: [id number] PAST SURGICAL HISTORY: Lumbar diskectomy x 2, hysterectomy, cholecystectomy, left leg surgery, colonoscopy, left carotid endarterectomy, basal cell excision from arm. SOCIAL HISTORY: No alcohol use, never smoked. FAMILY HISTORY: None. REVIEW OF SYSTEMS: From her physical: CONSTITUTIONAL: Denies fever or chills. EYES: Denies eye pain or visual change. HENT: Denies congestion, headache. RESPIRATORY: Denies cough, shortness of breath. CARDIOVASCULAR: Denies chest pain, palpitations. GASTROINTESTINAL: Denies nausea, vomiting or diarrhea. GENITOURINARY: Denies burning or urgency. MUSCULOSKELETAL: Denies back pain, muscle pain. SKIN: Denies rashes, bruising. NEUROLOGICAL: Denies weakness. PSYCHIATRIC: Denies. ENDOCRINE: Denies increased urination. She has diabetes. HEMATOLOGIC/LYMPHATIC: Denies easy bleeding, easy bruising. PHYSICAL EXAMINATION: Grossly normal. Urine culture was grossly negative. Syphilis serology is pending. Vitamin B12, 2451, which is high. Vitamin D pending. IMAGING: Head CT was done on the , read as no acute intracranial process. Per my review, agree. CURRENT MEDICATIONS: In the hospital, metoprolol succinate 25 mg p.o. daily, aspirin 81 mg p.o. daily, Protonix 40 mg p.o. daily, Depakote 125 mg p.o. t.i.d., Requip 1 mg p.o. at bedtime, insulin, gabapentin 300 mg b.i.d., hydrocodone, bitartrate/acetaminophen 5/325 q.4 hours p.r.n. pain scale 5-10. MENTAL STATUS EXAMINATION: This is a well-developed, fairly nourished female appearing nearly stated age. Attention intact. Concentration fair. Speech is normal, rate, rhythm, and tone. Knew day, date and time except she said it was Friday, not Friday. Mood and affect congruent and euthymic. Denied SI or HI. Denied hopelessness, helplessness. Denied homicidal intent or plan. Cognitive Screen noted to be impaired on SLUMS when Dr. Reynoso saw her on medical floor in prior to psychiatric admission admission. [facility] [address] [place] [address] HISTORY AND PHYSICAL Name: TAMI JOY Room #: 524A-A ADM IN M.R.#: [id number] Admission: 01/12/19 Attend Phys: Daryl Duckworth DO Discharge: Date of : 52 Report #: [id number] FORMULATION: A 68-year-old female sent off for dementia evaluation. DIAGNOSES: Cognitive impairment, likely major neurocognitive disorder, Chronic Renal Failure PLAN: Evaluate, stabilize, obtain collateral. Neuropsych testing order. We will order OT to do the ZAIN. issues regarding decision maker to be resolver once work up complete. ESTIMATED LENGTH OF STAY: 5-10 days. Time spent on interview, review of records, coordination of care is at least 60 minutes. STRENGTHS: She is insured, has established physician. WEAKNESSES: Advancing age. Multiple health problems. <ELECTRONICALLY SIGNED> By: Daryl Duckworth DO 01/16/19 1006 [id number] Daryl Duckworth, /nt
--- NOTE | 2019-01-16 18:35 | NUR ---
AA0X4. VERY PLEASANT AND COOPERATIVE. DENIES PAIN. GOOD APPETITE FOR MEALS. SLOW STEADY GAIT. IN DINNIG ROOM MOST OF SHIFT VISITING WITH OTHER PATIENTS.
[2019-01-16 19:41] VITALS: BP 144/55
--- NOTE | 2019-01-16 22:05 | NUR ---
ASSUMED CARE OF THE PT AT 1915PM. ALERT ET ORIENTED X 3. MAKES NEEDS KNOWN. UP AND ABOUT THE UNIT, HAS BEEN SPENDING MOST OF THE EVENING IN THE DAYROOM. HEART RATE REGULAR, LUNGS CLEAR BILATERALLY. RESP., EVEN, AND UNLABORED. +BS HEARD IN ALL 4 QUADRANTS. ABD SOFT ET NONTENDOR. THE PT IS SLIGHTLY OBESE. DENIES ANXIETY AND DEPRESSION, A/V HALLUNICATIONS, SI/HI. DENIES RACING THOUGHTS AND NIGHTMARES. REMAINS ON 12 MINUTE CHECKS FOR HER SAFETY.
--- NOTE | 2019-01-17 01:28 | NUR ---
THE PT REQUESTED MEDICATION FOR SLEEP, OFFERED HER THE SEROQUEL, WHICH SHE REFUSED, STATING THAT IT MADE HER TOO SLEEPY THE OTHER NIGHT. REQUESTING TO TAKE A SHOWER, HER LEGS WERE HURTING HER, SHE WAS ALLOWED TO TAKE A HOW SHOWER, NOW SHE IS IN BED.
[2019-01-17 07:20] VITALS: BP 118/62
--- NOTE | 2019-01-17 12:50 | NUR ---
0710: Report rec from [facility] shift, care assumed. [id number]: Ambulatory independently in room, halls and to DR, gait steady, oriented x4, denies pain or discomfort. Feeds self a.m. meal, appetite good, takes meds and insulin w/o difficulty. Attended 0900 therapy group, full participation noted, cooperative with staff, minimal verbalization noted.
[2019-01-17 19:32] VITALS: BP 163/63
--- NOTE | 2019-01-17 23:41 | NUR ---
ASSUMED CARE OF THE PT AT 191 PM. THE PT WAS SITTING IN THE DAYROOM WHEN THIS BRAKE ASSEMBLER CAME ON DUTY. ALERT ET ORIENTED X 3. MAKES NEEDS KNOWN. WALKS WITH A STEADY GAIT. HEART RATE REGULAR, LUNGS CLEAR BILATERALLY, RESP., EVEN, AND UNLABORED. +BS HEARD IN ALL 4 QUADRANTS, ABD SOFT ET NONTENDOR. +PP BILATERALLY, THE PT HAS A FLAT AFFECT. REMAINS ON 12 MINUTE CHECKS FOR HER SAFETY.
--- NOTE | 2019-01-18 05:19 | NUR ---
THE PT HAS BEEN SLEEPING MOST OF THE NIGHT, TAKES HER MEDICATIONS WITHOUT ANY DIFFICULTY. REMAINS ON 12 MINUTE CHECKS FOR HER SAFETY.
[2019-01-18 05:41] LABS: ALBUMIN 2.5 g/dL (3.4-5.0); CALCIUM 7.9 mg/dL (8.5-10.1); PHOSPHORUS 3.3 mg/dL (2.5-4.9); POTASSIUM 4.7 mmol/L (3.5-5.1)
[2019-01-18 09:38] VITALS: BP 145/59
[2019-01-18 20:51] VITALS: BP 147/65
[2019-01-18 23:15] VITALS: BP 147/65
--- NOTE | 2019-01-19 00:40 | NUR ---
PATIENT WAS UP IN DINING ROOM WHEN I CAME ON TO FLOOR AT 1900. SHE WAS VISITING WITH 2 OTHER FEMALE PATIENTS AND SHE WAS SMILING AND LAUGHING AT TIMES WITH THEM. ON ASSESSMENT SHE DENIES PAIN. MEDS GIVEN WHOLE AT HS. SHE IS A/O X 3. SHE AWOKE AT 0020 WITH C/O ERICA HORSE IN HER LEFT CALVE. SHE IS PRONE TO THESE SHE STATES. NO HOT SPOTS TO LEG. MASSAGED LEG UNTIL IT WENT AWAY. PATIENT UP TO THE BATHROOM THEN AND BACK TO BED. BED IN LOW POSITION AND BED ALARM ON.
--- NOTE | 2019-01-19 01:27 | NUR ---
PATIENT AWOKE AND TOLD TRUCK CHAUFFEUR THAT HER LEFT THIGH WAS HURTING. WHEN I WENT IN TO HER ROOM SHE WAS SITTING ON SIDE OF BED. SHE SAID SHE HAD A CRAMP IN HER LEFT THIGH. ASSESSED AREA AND PATIENT WAS GIVEN TYLENOL 650MG FOR PAIN. PATIENT BACK TO BED. WILL CONTINUE TO MONITOR.
[2019-01-19 09:46] VITALS: BP 136/53
--- NOTE | 2019-01-19 09:59 | NUR ---
ASSUMED CARE AT 0700 THIS MORNING. PT. IN BED. SHE GOT UP FOR BREAKFAST THEN SHE RETIRED AGAIN TO HER BED. SHE DID NOT ATTEND MORNING GROUP. DR. SPRINGER PLACED HER ON A ROOM LOCK OUT FOR MEALS AND GROUPS. SHE TOOK HER MEDS WITHOUT DIFFICULTY. LUNGS CTA, ABD SOFT. STATED SHE HAD A BM LAST EVENING.
--- NOTE | 2019-01-19 11:37 | NUR ---
Family Phone meeting with PHIL Gotti and Patient's half brother Keo "Marek" and his Hanna. Explained Dx and that pt. will no longer be able to live independently. Bro and in agreement with the plan. Going to find out if patient has a health supplemental insurance. Need to begin plans for referral to a NF. Half Klever Crowley is DPOA and suggested we look in purse in the checkbook to see if there were any payments to an insurance co. Also going to reach out to jonathon Chong in to see if he has a swartz and can look in the house for a policy. Phone #'s - SERENA - Keo - [phone], His Hanna - [phone], Scottasia Goreny - [phone], lio Ng - [phone]
--- NOTE | 2019-01-19 15:38 | NUR ---
Date of Admission: 01/12/19 Date of Activity Therapy Assessment: 01/15/19 Activity Goal: Manage depression Initial Goal: 1 Group activity/day Weekly progress towards goal: On track Group participation level: Full Behaviors observed: Pt is consistent in participation in one group overall. She presents with a bright affect as opposed to the depressive flat affect she presented when admitted. Patient has made friendships within the milieu and rarely isolates to her room. Plan: No change towards goal
[2019-01-19 20:00] VITALS: BP 149/59
--- NOTE | 2019-01-20 04:15 | NUR ---
1909-Report received from day shift nurse and care assumed. Joe talked with a female peer in the day area and had a bright affect/smiling/laughing at times. She was compliant with HS meds. and had no c.o. pain voiced at bedtime. At 0300 she awakened and walked to the nurses station and said she had alot on her mind. She was talked with and she said "I was told I had Alzheimers" and she teared up. She expanded and said she had to move, from her apartment, and doesn't want to have to get rid of her collection of [email or web address] things, saying too her brother is looking into a place, (a prison) near him at the [facility]. Ideas were given to her about how to downsize and/or donate some of her collection such as calling a local jainism for instance. She c.o. of a headache also and given at 0315 Tylenol 650 mg. po and she tried to go back to sleep and will monitor for effectiveness. her things/X-mas decorations
[2019-01-20 05:49] LABS: ALBUMIN 2.7 g/dL (3.4-5.0); CALCIUM 8.4 mg/dL (8.5-10.1); CREATININE 3.2 mg/dL (0.6-1.0); PHOSPHORUS 4.2 mg/dL (2.5-4.9); POTASSIUM 5.1 mmol/L (3.5-5.1)
--- NOTE | 2019-01-20 06:42 | NUR ---
Sent info ref packet to Louisa Lucio in [facility] on 01-19-19. Planning on reaching out to [facility] today for meeting with Patient for medicaid application
--- NOTE | 2019-01-20 07:34 | NUR ---
Assumed care of patient from third shift lieutenant this am. Patient in bed resting quietly. Breath sounds clear, S1, S2 heart tones. Bowel sounds in lower quadrants. Patient stated that she did not sleep during the night. Skin taught around ankles, edema noted in limbs. Patient calm, content, and cooperative.
[2019-01-20 08:59] VITALS: BP 144/59
--- NOTE | 2019-01-20 14:41 | NUR ---
I retrieved her belongings from security. I was asked to help Ofelia call her landlord to pay her rent. Ofelia shared with me that her brother informed her not to pay her rent, she has put down a deposit. Haydee stated that her brother informed her that "I may be going to live down by him." I asked if she still wanted to call her landlord, or call her brother. She declined wanting to call either of them. I returned her property to security.
[2019-01-20 20:29] VITALS: BP 151/68
[2019-01-20 23:04] VITALS: BP 151/68
--- NOTE | 2019-01-21 05:47 | NUR ---
ASSESSMENT: PT REMAIN ALERT AND ORIENT TWO. NO SI/HI NOR HALLUCINATIONS. DID NOT SLEEP THAT WELL LAST NIGHT. ONLY SLEPT CLOSE TO 4.5 HRS. REMAIN PLEASANT AND FOLLOW COMMANDS. SLOW PROGRESS TOWARDS DC GOALS, WILL CONTINUE TO MONITOR.
[2019-01-21 09:28] VITALS: BP 131/65
--- NOTE | 2019-01-21 11:07 | NUR ---
Discharge scheduled for January the @ 0700. Gina Ng, will pick the patient up for transport to [facility] [phone] [place] [id number] Mariah Simmons is the mental health social worker.
--- NOTE | 2019-01-21 18:36 | NUR ---
ASSUMED CARE OF PATIENT AT 0715, PATIENT ALERT AND ORIENTED, VERY PLEASANT AND CALM. PATIENT DENIES PAIN THIS SHIFT. PATIENT UP AD AISSATOU. PATIENT OUT OF ROOM MOST OF THE SHIFT TODAY. GOOD APPETITE. BLOOD SUGAR MONITORING ORDERED, INSULIN GIVE PER S/S. VSS. FAMILY CALLED TO TALK TO THE PATIENT. WILL CONTINUE TO MONITOR.
[2019-01-21 19:14] VITALS: BP 174/68
--- NOTE | 2019-01-22 04:57 | NUR ---
1909-Report received from day shift nurse and care assumed. Joe was talking with peers and smiling often in the day area, making a list of things she needed to do for her moving too. She requested something to help her sleep better because she stays up worrying she said. She also requested something for constipation since it has been 3 or 4 days since she had a bowel movement she said. ordered Trazodone 12.5 mg. po every HS and Miralax BID and she has slept soundly tonite and went to bed earlier then usual tonite also.
[2019-01-22 10:58] VITALS: BP 138/73
--- NOTE | 2019-01-22 12:24 | NUR ---
Assess for length of stay. Admit to H unit with major depressive disorder. Hx DM, BG 174-221, on Mod dose ss insulin. Wts stable based on past wts hx. Possible discharge in few days. Low nutrition risk
--- NOTE | 2019-01-22 13:10 | NUR ---
0717 Report given from overnight shift. 0720 Patient ate breakfast appetite good. Patient took medication without incident, patient interactive with peers. Patient participated in groups, Continues on Lispro sliding scale. Attended 0900 group particpated.
[2019-01-22 19:38] VITALS: BP 164/64
[2019-01-22 22:33] VITALS: BP 143/55
--- NOTE | 2019-01-23 05:03 | NUR ---
Joe was socialable with other peers in the evening. She c.o. constipation, bowel sounds hypoactive and abdomen round and soft, last bm 9-30. Orders received for Dulcolax suppository prn at HS and for Docusate Sodium 100 mg. po BID added to her medication orders. She had no c.o. pain voiced and slept soundly this nite with a small bowel movement thus far.
[2019-01-23 09:31] VITALS: BP 155/74
--- NOTE | 2019-01-23 15:57 | NUR ---
CALM AND COOPERATIVE SO FAR THIS SHIFT. VISIBLE IN DAYROOM PLAYING CARDS,VISITING AND WATCHING TV WITH FEMALE PERS. CONSTRICTED AFFECT-RESPONSES ARE VAGUE AT TIMES AND SUPERFICIAL BUT IS COOPERATIVE WITH REQUESTS OF STAFF. DENIES SI/SH/HI. DENIES ACUTE ANXIETY. NO NOTED OR REPORTED PSYCHOSIS.
[2019-01-23 20:38] VITALS: BP 171/76
[2019-01-23 22:39] VITALS: BP 171/76
--- NOTE | 2019-01-24 04:13 | NUR ---
PT IN DAYROOM AT [facility]. A+O AND INTERACTING APPROPRIATLY WITH STAFF AND SELECT PEERS. NO EVIDENCE OF ANXIETY. TOOK HS MEDS PRESCRIBED. BS 234. 10u LANTIS TO RT DELTOID. WENT TO BED FOLLOWING MEDS AND SLEPT WELL THROUGH THE NIGHT TO THIS POINT.
[2019-01-24 07:45] VITALS: BP 144/68
--- NOTE | 2019-01-24 08:10 | NUR ---
ASSUMED CARE FROM PLUCK TRIMMER NURSE. PATIENT CALM, CONTENT AND PLEASANT THIS AM. PATIENT STATED THAT SHE FEELS LIKE SHE HAS A COLD. BREATH SOUNDS CLEAR, BOWEL SOUNDS PRESENT, HEART TONES REGULAR S1,S2.
[2019-01-24 12:26] VITALS: BP 144/68
[2019-01-24] MEDS ORDERED: ARICEPT 5 MG TAB5 MG PO (15:31)
[2019-01-24] MEDS ORDERED: METOPROLOL SUCC25 M1 PO (15:32)
[2019-01-24] MEDS ORDERED: GABAPENTIN 100100 MG PO (15:33)
[2019-01-24] MEDS ORDERED: TRAZODONE HCL50 MG PO (15:33)
[2019-01-24] MEDS ORDERED: MIRALAX17 GM PO (15:34)
[2019-01-24] MEDS ORDERED: COLACE 100 MG100 MG PO (15:34)
[2019-01-24] MEDS ORDERED: VITAMIN D5000 UNIT PO (15:35)
[2019-01-24 20:37] VITALS: BP 121/57
[2019-01-24 21:49] VITALS: BP 121/57
--- NOTE | 2019-01-25 04:05 | NUR ---
PT QUIET AND OUT WITH THE GROUP THIS EVENING. LOOKING FORWARD TO IMPENDING DC IN THE AM. BS 303, RECEIVED INSULIN PER SS. TOOK HS MEDS ORDERED W/O PROBLEM. WENT TO BED FOLLOWING SNACK AND MEDS AND HAS SLEPT WELL THROUGH THE NIGHT.
[2019-01-25 05:36] LABS: ALBUMIN 2.5 g/dL (3.4-5.0); CALCIUM 8.4 mg/dL (8.5-10.1); CREATININE 3.4 mg/dL (0.6-1.0); PHOSPHORUS 4.4 mg/dL (2.5-4.9); POTASSIUM 5.8 mmol/L (3.5-5.1)
--- NOTE | 2019-01-25 08:18 | NUR ---
DISCHARGE INSTRUCTIONS REVIWED WITH PATIENT AND IVON PAPERWORK SIGNED,[employer] AND BELONGINGS SENT EITH PATIENT. REPORT CALLED LYLE JERONIMO AT [facility] AND [facility] MED LIST FAXED PER REQUEST. LEFT FLOOR AT 0735 ACCOMPNIED BY UNIT STAFF IN WHEELCHAIR TO [employer]IVATE [employer]HICLE. ORDER RECEIVED AT 0740 FOR ONE TIME DOSE VALTASSA-DR HARRY CONTACTED VIA PHONE AND ORDER RECEIVED TO HAVE [facility] CALL HIM FOR ADDITIONAL ORDERS-KANDACE RN AT [facility] RECONTACTED WITH ABOVE INFO AT APPROX 0800
--- NOTE | 2019-01-27 16:03 | D ---
[facility] [place] [address] DISCHARGE SUMMARY Name: TAMI JOY Room #: 524A-A [facility] IN M.R.#: [id number] Admission: 01/12/19 Attend Phys: Daryl Duckworth DO Discharge: 01/25/19 Date of : 52 Report #: [id number] THIS REPORT FOR: //name// CC: Daryl Rodriguez DATE OF SERVICE: 01/25/2019 INPATIENT PSYCHIATRIC DISCHARGE SUMMARY EXPECTED DATE OF DISCHARGE: 01/25/2019 at 0700 hours. ATTENDING PHYSICIAN: Daryl Duckworth DO AIRPORT SECURITY SCREENER: Tacos Rodriguez MD DISCHARGE DIAGNOSES: As follows: Major neurocognitive disorder due to Alzheimer's disease, mild degree, with behavioral disturbance, improved. OTHER DIAGNOSES: Diabetes mellitus type 2, insulin-dependent, coronary artery disease, recent non-ST elevation myocardial infarction, acute kidney injury with chronic kidney disease, gastroesophageal reflux disease. Of note, the patient was admitted from the medical floor at [facility] after admission for hyperglycemia and renal failure. She got one or two dialysis treatments. She has been discharged to nursing facility at [facility] where her brother lives. Psychiatric and medical care to be provided by the receiving facility. DISCHARGE MEDICATIONS: Donepezil 5 mg p.o. daily for cognitive enhancement; metoprolol succinate XL 25 mg p.o. daily for hypertension; gabapentin 300 mg p.o. b.i.d. for neuropathic pain; trazodone 12.5 mg p.o. at bedtime for sleep; docusate sodium 100 mg p.o. b.i.d., hold for diarrhea, for bowel motility; polyethylene glycol 17 g p.o. b.i.d., hold for diarrhea, for bowel motility; cholecalciferol 5000 International Units p.o. daily. Also, she is on Requip 1 mg p.o. at bedtime for restless leg syndrome, aspirin 81 mg p.o. daily and Depakote Sprinkles 125 mg p.o. t.i.d. as well as pantoprazole 40 mg p.o. daily, glipizide has been stopped due to the degree of renal failure as well as renal colic, hydrocodone bitartrate. Also it is recommended that sliding scale insulin protocol will be continued for the patient with a goal to have her on prandial insulin regimen. ADDITIONAL INFORMATION ON LABORATORY DATA: During her psychiatric admission were as follows: Sodium 129, chloride 97, bicarbonate 22, BUN 67, creatinine 3.2, which is stable. GFR 14, glucose 142. Hemoglobin A1c, actually it was not a recent hemoglobin A1c. [address] [address] DISCHARGE SUMMARY Name: TAMI JOY Room #: 524A-A [facility] IN M.R.#: [id number] Admission: 01/12/19 Attend Phys: Daryl Duckworth DO Discharge: 01/25/19 Date of : 52 Report #: [id number] Microbiology on this admission was negative. Stool was done and it is negative for occult blood. REASON FOR ADMISSION: The patient had become disorganized, agitated during medical admission on the Friday night before psychiatric admission. She has eloped from the Medical Unit and was brought back by family. HOSPITAL COURSE: The patient was admitted to the Geriatric Psychiatry Unit. [employer]ellite [employer] Operator retirement actuary, Dr. Adames determined no ongoing dialysis. Dialysis catheter was removed the day prior to her psychiatric admission. In addition, the patient cooperated with group therapies and wooten policy with no restraints with this patient. I elected to continue her on conservative medication regimen given her general medical nature and the mild degree of his dementia and her SLUMS score was around 19 out of 30. I elected not to starting cognitive enhancers at this point that could be revisited in the future. Neuro imaging done on this admission was none as this has been done in the past, namely 08 January, prior to her medical admission. There was a mild supratentorial disease, which would be small vessel angiopathy, otherwise normal. PHYSICAL EXAMINATION: VITAL SIGNS: Temperature 37.1, pulse 85, respirations 17, BP 129/57, O2 sat 100%. MENTAL STATUS EXAMINATION: A well-developed, fairly nourished, female, appearing stated age. Attention intact. Concentration intact. Speech is normal in rate and tone. Thought process is linear and goal oriented. Thought content focused on discharge. No psychomotor agitation or psychomotor retardation. Denied SI or HI. Denied hopelessness or helplessness. Denied auditory, visual, or tactile hallucinations. Memory not formally tested. Insight limited. Judgment fair. Fund of knowledge below average. It should be noted her psychological diagnosis is major neurocognitive disorder, unspecified, with poor insight of moderate severity. RECOMMENDATIONS: Discontinue driving, accompany to medical appointments, treatment of Cognitive Behavioral Therpay improve memory, which includes use of antidepressant medication may be beneficial. As stated, I will defer use of cognitive enhancers to the snf doctor. <ELECTRONICALLY SIGNED> By: Daryl Duckworth DO 01/27/19 1603 [id number] Daryl Duckworth DO /nt
--- NOTE | 2019-01-27 16:06 | D ---
[facility] [place] [address] DISCHARGE SUMMARY Name: TAMI JOY Room #: 524A-A [facility] IN M.R.#: [id number] Admission: 01/12/19 Attend Phys: Daryl Duckworth DO Discharge: 01/25/19 Date of : 52 Report #: [id number] THIS REPORT FOR: //name// CC: Daryl Rodriguez DATE OF SERVICE: 01/25/2019 INPATIENT PSYCHIATRIC DISCHARGE SUMMARY ATTENDING PHYSICIAN: Daryl Duckworth DO. GYRO MECHANIC: Tacos Rodriguez M.D., also consulting is Dylan Adames M.D. of Nephrology. DISCHARGE DIAGNOSES: Major neurocognitive disorder, mild degree. The patient's comorbidities include acute kidney injury with chronic kidney disease, coronary artery disease, recent uyn-WO-caroxmedz myocardial infarction; diabetes mellitus type 2, insulin dependent; gastroesophageal reflux disease. DISCHARGE PLAN: She is discharged into a nursing facility in [facility] where her brother lives. Psychiatric and medical care to be provided by that facility. Renal function check in 1 week is advised as well as the patient to see a faculty head in 1 month for followup on her renal difficulties. DISCHARGE MEDICATIONS: Are as follows: Donepezil 5 mg p.o. daily for cognitive enhancement, metoprolol succinate XL 25 mg p.o. daily for hypertension and coronary artery disease, gabapentin 300 mg p.o. b.i.d. for neuropathic pain, trazodone 12.5 mg p.o. at bedtime for sleep, docusate 100 mg p.o. b.i.d. for bowel motility, polyethylene glycol 17 g p.o. b.i.d. for bowel motility, vitamin D 5000 international units p.o. daily. The patient to continue Requip 1 mg p.o. at bedtime for restless legs, aspirin 81 mg p.o. daily for cardioprotection, Depakote 125 mg p.o. t.i.d. for mood stabilization and pantoprazole 40 mg p.o. daily for GERD. REASON FOR ADMISSION: The patient transferred from medical floor at [facility] for confusion as well as elopement. While on the medical floor, she made it out of the hospital, went back to the family. HOSPITAL COURSE: The patient was admitted to Geriatric Psychiatry Unit. The patient scored in the borderline range on cognitive screening. Dr. Andrews was also consulting. Major neurocognitive disorder was diagnosed. The patient's brother was contacted. The patient has a history of cognitive decline. She had briefly been placed in a SNF. The patient was seen by [facility], made Medicaid pending. The patient improved overall in her affect, participation, visiting, chatting frequently with several peers in her age range. [address] [address] DISCHARGE SUMMARY Name: TAMI JOY Room #: 524A-A [facility] IN ..#: [id number] Admission: 01/12/19 Attend Phys: Daryl Duckworth, DO Discharge: 01/25/19 Date of : 52 Report #: [id number] CONDITION ON DISCHARGE: Stable. The patient is not suicidal, not homicidal. LABORATORY DATA: This admission, sodium 135, potassium 5.8, chloride 103, bicarbonate 23, BUN 73, creatinine 3.4, estimated GFR of 13, glucose 158. On day of discharge, syphilis serology was negative. Additional laboratories done this admission included ammonia level less than 10, A1c of 8.5. Neuroimaging had been done previously on 01/08/2019 and found to have no acute intracranial process. Fairly normal looking CT scan for her age group. PHYSICAL EXAMINATION: VITAL SIGNS: On the day of discharge are as follows: Temperature 37.1, pulse 85, respirations 17, BP 121/57, O2 sat 100%. MENTAL STATUS EXAMINATION: This is a well-developed, fairly-nourished female. Normal gait. Attention intact. Concentration intact. Speech normal rate and volume. Thought process linear and goal directed. Thought content focused on discharge. No psychomotor agitation, no psychomotor retardation. Mood and affect congruent, euthymic, broad range. Memory not formally tested. Insight limited. Judgment limited. Fund of knowledge below average. Prognosis for this patient is guarded given her dementia, given her chronic renal failure that likely will place her in need of dialysis with comfort care in the next 6-12 months. <ELECTRONICALLY SIGNED> By: Daryl Duckworth DO 01/27/19 1606 [id number] Daryl Duckworth DO /nt
== END 2019-01-25 07:30 | DRG 56 ==
LOC: SBH
PROVIDERS: Hospitalist; ADMIT Psychiatry & Neurology Psychiatry
DX: G30.9 Alzheimer's disease, unspecified (principal); N18.6 End stage renal disease; F02.81 Dementia in other diseases classified elsewhere, unspecified severity, with behavioral disturbance; N17.9 Acute kidney failure, unspecified; I13.2 Hypertensive heart and chronic kidney disease with heart failure and with stage 5 chronic kidney disease, or end stage renal disease; E87.1 Hypo-osmolality and hyponatremia; E11.22 Type 2 diabetes mellitus with diabetic chronic kidney disease; I25.10 Atherosclerotic heart disease of native coronary artery without angina pectoris; K21.9 Gastro-esophageal reflux disease without esophagitis; G25.81 Restless legs syndrome; I48.91 Unspecified atrial fibrillation; I50.9 Heart failure, unspecified; E78.5 Hyperlipidemia, unspecified; E11.40 Type 2 diabetes mellitus with diabetic neuropathy, unspecified; M79.7 Fibromyalgia; E11.51 Type 2 diabetes mellitus with diabetic peripheral angiopathy without gangrene; D64.9 Anemia, unspecified; F32.9 Major depressive disorder, single episode, unspecified; J44.9 Chronic obstructive pulmonary disease, unspecified; Z60.2 Problems related to living alone; Z79.4 Long term (current) use of insulin; I25.2 Old myocardial infarction; Z79.01 Long term (current) use of anticoagulants; Z90.710 Acquired absence of both cervix and uterus; Z90.49 Acquired absence of other specified parts of digestive tract; Z91.19 Patient's noncompliance with other medical treatment and regimen
CPT/HCPCS: 10880